=== PATIENT | male | born 1950 | race Two or more races ===

== ENCOUNTER 2024-03-26 20:28 | Inpatient (IN) | payer MEDICAID ==
[~2024-03-26] VITALS: Ht 185.4 cm; Wt 99.0 kg
[2024-03-26 21:55] LABS: Basophils # (auto) 0.1 10 ^3/uL (0-0.2); Basophils % (auto) 1.2 % (0.0-2.0); Eosinophils # (auto) 0.2 10 ^3/uL (0-0.8); Eosinophils % (auto) 2.4 % (0.0-7.0); Hemoglobin 14.8 g/dL (13.5-17.5); Lymphocytes # (auto) 2.2 10 ^3/uL (0.4-5.4); Lymphocytes % (auto) 31.6 % (10.0-50.0); Mean Corpuscular Hemoglobin 32.6 pg (28.0-32.0); Mean Corpuscular Hgb Conc. 34.4 g/dL (32.0-36.0); Monocytes # (auto) 0.7 10 ^3/uL (0-1.3); Monocytes % (auto) 9.7 % (0.0-12.0); Neutrophils # (auto) 3.9 10 ^3/uL (1.6-8.6); Neutrophils % (auto) 55.1 % (37.0-80.0); Nucleated Red Blood Cells % 0.1 %; Platelet Count (auto) 238 10^3/uL (140-450); Red Blood Cells 4.53 10^6/uL (4.5-5.90); Red Cell Distribution Width 14.4 % (11.8-14.3)
[2024-03-26 21:59] LABS: Chloride 108 mmol/L (98-107); Potassium 4.1 mmol/L (3.5-5.1); Sodium 140 mmol/L (136-145)
[2024-03-26 22:00] LABS: Anion Gap 4 (5-15); Calcium 9.8 mg/dL (8.7-10.4); Carbon Dioxide 28 mmol/L (20-30)
[2024-03-26 22:05] LABS: BUN/Creatinine Ratio 7.6 (10.0-20.0); Blood Urea Nitrogen 9 mg/dL (9-23); Glucose 100 mg/dL (74-106)
[2024-03-27] MEDS: VANCOMYCIN 1GM/200ML 200 ML IV ONE ×2 (00:27→00:28)
[2024-03-27] MEDS ORDERED: VANCOMYCIN PER PHARMACY 0 MG IV SCH (03:15)
[2024-03-27] MEDS ORDERED: ACETAMINOPHEN 325 MG TAB PO PRN (03:15)
[2024-03-27] MEDS ORDERED: ONDANSETRON HCL 4 MG/2 ML VIAL IV PRN (03:15)
[2024-03-27 06:00] VITALS: PULSE 68; RESP 20; O2SAT 95
[2024-03-27] MEDS: HYDROcodone-ACET 5/325MG TAB PO PRN (06:28)
[2024-03-27 07:48] LABS: Alanine Aminotransferase 45 U/L (7-40); Albumin 4.6 g/dL (3.2-4.8); Alkaline Phosphatase 105 U/L (46-116); Anion Gap 3 (5-15); Aspartate Aminotransferase 26 U/L (13-40); Blood Urea Nitrogen 13 mg/dL (9-23); Calcium 9.9 mg/dL (8.7-10.4); Carbon Dioxide 30 mmol/L (20-30); Chloride 107 mmol/L (98-107); Glucose 104 mg/dL (74-106); Potassium 4.1 mmol/L (3.5-5.1); Sodium 140 mmol/L (136-145)
[2024-03-27 07:49] LABS: Bilirubin, Total 0.6 mg/dL (0.2-1.0); Total Protein 7.5 g/dL (5.7-8.2)
[2024-03-27 09:25] LABS: Basophils # (auto) 0.1 10 ^3/uL (0-0.2); Basophils % (auto) 0.9 % (0.0-2.0); Eosinophils # (auto) 0.2 10 ^3/uL (0-0.8); Eosinophils % (auto) 2.8 % (0.0-7.0); Hematocrit 45.1 % (41.0-53.0); Hemoglobin 15.1 g/dL (13.5-17.5); Lymphocytes # (auto) 1.6 10 ^3/uL (0.4-5.4); Lymphocytes % (auto) 26.3 % (10.0-50.0); Mean Corpuscular Hgb Conc. 33.5 g/dL (32.0-36.0); Mean Corpuscular Volume 95.6 fL (80.0-100.0); Monocytes # (auto) 0.6 10 ^3/uL (0-1.3); Monocytes % (auto) 9.4 % (0.0-12.0); Neutrophils # (auto) 3.6 10 ^3/uL (1.6-8.6); Neutrophils % (auto) 60.6 % (37.0-80.0); Nucleated Red Blood Cells % 0.1 %; Platelet Count (auto) 247 10^3/uL (140-450); Red Blood Cells 4.72 10^6/uL (4.5-5.90); Red Cell Distribution Width 14.2 % (11.8-14.3)
[2024-03-27 09:30] VITALS: BP 143/80; PULSE 74; RESP 20; TEMP 97.7; O2SAT 98
[2024-03-27 10:30] LABS: Amphetamine Screen, Urine Pos (NEGATIVE)
[2024-03-27 10:31] LABS: Barbiturate Scree,Urine Neg (NEGATIVE); Benzodiazephine Screen, Urine Neg (NEGATIVE); Cannabinoid Screen, Urine Pos (NEGATIVE); Cocaine Screen, Urine Neg (NEGATIVE); Opiate Scree,Urine Neg (NEGATIVE); Phencyclidine Screen, Urine Pos (NEGATIVE)
[2024-03-27] MEDS ORDERED: HYDR-4072 PO (10:42)
[2024-03-27] MEDS ORDERED: METH-1182 PO (10:42)
[2024-03-27] MEDS: cefTRIAXone 1GM/50ML D5W 50 ML IV STA (14:32)
[2024-03-27] MEDS: ENOXAPARIN SOD 40 MG/0.4 ML SYRINGE SC STA (14:32)
[2024-03-27] MEDS: VANCOMYCIN 1GM/200ML 200 ML IV SCH (14:59)
[2024-03-27] MEDS: ENOXAPARIN SOD 100 MG/1 ML SYRINGE SC STA (15:21)
[2024-03-27 15:31] LABS: Urine Bacteria None Seen /hpf (None Seen); Urine Blood Negative /uL (Negative); Urine Clarity Ex.Turbid (Clear); Urine Color Light-Orange (Yellow); Urine Protein, UAD TRACE (Negative); Urine Urobilinogen Normal (Negative); Urine WBC 1 /hpf (0 - 3)
[2024-03-27 17:00] VITALS: BP 127/73; PULSE 60; RESP 20; TEMP 98.2; O2SAT 94
[2024-03-27] MEDS: LOSARTAN POTASSIUM 50 MG TAB PO STA (17:58)
[2024-03-27 20:00] VITALS: RESP 18
[2024-03-27 21:00] VITALS: BP 144/64; PULSE 79; RESP 18; TEMP 98.4; O2SAT 97
[2024-03-27] MEDS: ENOXAPARIN SOD 100 MG/1 ML SYRINGE SC SCH (21:12)
[2024-03-28 05:00] VITALS: BP 131/77; PULSE 74; RESP 18; TEMP 98.3; O2SAT 96
[2024-03-28 07:15] LABS: Basophils # (auto) 0.1 10 ^3/uL (0-0.2); Basophils % (auto) 1.2 % (0.0-2.0); Eosinophils # (auto) 0.2 10 ^3/uL (0-0.8); Eosinophils % (auto) 2.6 % (0.0-7.0); Hemoglobin 14.4 g/dL (13.5-17.5); Lymphocytes # (auto) 1.9 10 ^3/uL (0.4-5.4); Lymphocytes % (auto) 32.4 % (10.0-50.0); Mean Corpuscular Hemoglobin 32.9 pg (28.0-32.0); Mean Corpuscular Hgb Conc. 34.4 g/dL (32.0-36.0); Mean Corpuscular Volume 95.5 fL (80.0-100.0); Monocytes # (auto) 0.7 10 ^3/uL (0-1.3); Monocytes % (auto) 11.6 % (0.0-12.0); Neutrophils # (auto) 3.1 10 ^3/uL (1.6-8.6); Neutrophils % (auto) 52.2 % (37.0-80.0); Nucleated Red Blood Cells % 0.1 %; Platelet Count (auto) 223 10^3/uL (140-450); Red Blood Cells 4.39 10^6/uL (4.5-5.90); Red Cell Distribution Width 14.3 % (11.8-14.3)
[2024-03-28 07:30] LABS: Chloride 106 mmol/L (98-107); Potassium 4.7 mmol/L (3.5-5.1); Sodium 137 mmol/L (136-145)
[2024-03-28 07:31] LABS: Anion Gap 0 (5-15); Carbon Dioxide 31 mmol/L (20-30)
[2024-03-28 07:32] LABS: Calcium 9.5 mg/dL (8.7-10.4)
[2024-03-28 07:36] LABS: BUN/Creatinine Ratio 10.5 (10.0-20.0); Blood Urea Nitrogen 11 mg/dL (9-23); Glucose 106 mg/dL (74-106)
[2024-03-28 08:00] VITALS: PULSE 85; RESP 17
[2024-03-28 08:37] VITALS: BP 137/82; PULSE 60; RESP 17; TEMP 97.7; O2SAT 95
[2024-03-28] MEDS: cefTRIAXone 1GM/50ML D5W 50 ML IV SCH (09:26)
[2024-03-28] MEDS: LOSARTAN POTASSIUM 50 MG TAB PO SCH (09:27)
[2024-03-28] MEDS ORDERED: ENOXAPARIN SOD 100 MG/1 ML SYRINGE SC SCH (10:00)
[2024-03-28] MEDS ORDERED: ENOXAPARIN SOD 40 MG/0.4 ML SYRINGE SC SCH (10:00)
[2024-03-28 13:21] VITALS: BP 127/63; PULSE 67; RESP 17; TEMP 98.4; O2SAT 95
[2024-03-28 15:34] VITALS: BP 130/62; PULSE 81; RESP 17; TEMP 98.4; O2SAT 98
[2024-03-28] MEDS ORDERED: APIX5TAB PO (15:48)
[2024-03-28] MEDS ORDERED: BACDST PO (15:48)
[2024-03-29 08:57] LABS: Hepatitis B Surface Antigen Negative (Negative)
[2024-03-29 14:58] LABS: Hepatitis C Antibody Positive (Negative)
== END 2024-03-28 16:00 | disposition home or self-care (01) | DRG 816 ==
LOC: ER 20:28 → OVERFLOW 03-27 03:09 → EAST 03-27 09:29
PROVIDERS: ADMIT Internal Medicine Pulmonary Disease; ATTEND Emergency Medicine
DX: T63.301A Toxic effect of unspecified spider venom, accidental (unintentional), initial encounter (principal); I82.431 Acute embolism and thrombosis of right popliteal vein; L03.116 Cellulitis of left lower limb; M79.89 Other specified soft tissue disorders; F19.10 Other psychoactive substance abuse, uncomplicated; F15.10 Other stimulant abuse, uncomplicated; F12.10 Cannabis abuse, uncomplicated; I10 Essential (primary) hypertension; R73.03 Prediabetes; E66.9 Obesity, unspecified; Z68.28 Body mass index [BMI] 28.0-28.9, adult; Y92.89 Other specified places as the place of occurrence of the external cause
CPT/HCPCS: 36415; 73590; 73700; 80048; 80053; 80307; 80320; 81001; 83036; 83605; 85025; 86803; 87040; 87340; 93970; 96365; G0378

== ENCOUNTER 2024-11-04 15:54 | Emergency (ER) | payer MEDICAID ==
[~2024-11-04] VITALS: Ht 170.2 cm; Wt 87.7 kg
[~2024-11-04 15:54] MED LIST: APIX5TAB PO; BACDST PO; HYDR-4072 PO; METH-1182 PO
[2024-11-04] MEDS ORDERED: AML5T PO (16:20)
[2024-11-04] MEDS ORDERED: DIPH25CA51 PO (16:20)
[2024-11-04] MEDS ORDERED: TAMS0.4C39 PO (16:20)
--- NOTE | 2024-11-04 16:20 | ED.PDOC ---
History of Present Illness HPI Comments 74-year-old male with past medical history pertinent for HTN, BPH,As the ED for request for medication refill. Patient reports that he recently moved ran out of his Flomax as well as high blood pressure medication. Patient states that he does not remember his blood pressure medication. He denies any symptoms at this time. No fever, chills, nausea, vomiting, chest pain, shortness of breath, headache, abdominal pain, numbness, tingling. No alleviating or aggravating factors. Time Seen by MD: 16:10 Primary Care Provider: MARCIA Reviewed Notes: Nurses Notes, Medications, Allergies Allergies: Coded Allergies: NO KNOWN ALLERGIES (Unverified , 03/26/24) Home Meds Active Scripts Diphenhydramine Hcl (BENADRYL CAPSULE) 25 Mg Cp, 25 MG PO DAILY, #30 CAP Prov:CARLOS GANDHI [facility] 11/04/24 Tamsulosin Hcl (Tamsulosin Hcl) 0.4 Mg Cap, 1 CAP PO DAILY, #30 CAP 1 Refill Prov:CARLOS GANDHI [facility] 11/04/24 Amlodipine Besylate (NORVASC TABLET) 5 Mg Tb, 1 TAB PO DAILY, #30 TAB 1 Refill Prov:CARLOS GANDHI [facility] 11/04/24 Apixaban Base (ELIQUIS) 5 Mg Tab, 10 MG PO BID for 7 Days, #28 TAB 10MG BID X 7 DAYS THEN 5MG PO BID FOR AT LEAST 6 MONTHS FOR DVT/PE TREATMENT Prov:JOHN KRUSE RESIDENT 03/28/24 Apixaban Base (ELIQUIS) 5 Mg Tab, 5 MG PO BID for 30 Days, #60 TAB 5 Refills Prov:JOHN KRUSE RESIDENT 03/28/24 Sulfamethoxazole W/Trimethopri (Bactrim Ds Tablet) 1 Tab Tb, 1 TAB PO BID for 7 Days, #14 TAB Prov:JOHN KRUSE RESIDENT 03/28/24 Reported Medications Methocarbamol (Methocarbamol) 750 Mg Tab, 1 TAB PO BIDPRN PRN for muscle spasm 03/27/24 Hydrocodone-Acetaminophen (Hydrocodone/Acetaminophen 10-325 mg) 1 Tab Tab, 1 TAB PO Q6HPRN PRN for pain 03/27/24 Past Medical History PAST MEDICAL HISTORY: HTN Past Medical History (Other): BPH Surgical History: Denies all surgeries Family History Family History: Reviewed,noncontributory to illness Social History Smoker: Non-Smoker Alcohol: Denies ETOH Use Drugs: Denies Drug Use Lives In: Home Constitutional: denies: chills, diaphoresis, fatigue, fever, malaise, sweats, weakness, others EENTM: denies: blurred vision, double vision, ear bleeding, ear discharge, ear drainage, ear pain, ear ringing, eye pain, eye redness, hearing loss, mouth pain, mouth swelling, nasal discharge, nose bleeding, nose congestion, nose pain, photophobia, tearing, throat pain, throat swelling, voice changes, others Respiratory: denies: cough, hemoptysis, orthopnea, SOB at rest, shortness of breath, SOB with excertion, stridor, wheezing, others Cardiovascular: denies: chest pain, dizzy spells, diaphoresis, Dyspnea on exertion, edema, irregular heart beat, left arm pain, lightheadedness, palpitations, PND, syncope, others Gastrointestinal: denies: abdomen distended, abdominal pain, blood streaked bowels, constipated, diarrhea, dysphagia, difficulty swallowing, hematemesis, melena, nausea, poor appetite, poor fluid intake, rectal bleeding, rectal pain, vomiting, others Genitourinary: denies: burning, dysuria, flank pain, frequency, hematuria, incontinence, penile discharge, penile sore, pain, testicle pain, testicle swelling, urgency, others Neurological: denies: dizziness, fainting, headache, left sided numbness, left sided weakness, numbness, paresthesia, pre-existing deficit, right sided numb ness, right sided weakness, seizure, speech problems, tingling, tremors, weakness, others Musculoskeletal: denies: back pain, gout, joint pain, joint swelling, muscle pain, muscle stiffness, neck pain, others Integumetry: denies: bruises, change in color, change in hair/nails, dryness, laceration, lesions, lumps, rash, wounds, others Allergic/Immunocompromised: denies: Difficulty Healing, Frequent Infections, Hives, Itching, others Hematologic/Lymphatic: denies: anemia, blood clots, easy bleeding, easy bruising, swollen glands, others Endocrine: denies: excessive hunger, excessive sweating, excessive thirst, excessive urination, flushing, intolerance to cold, intolerance to heat, unexplained weight gain, unexplained weight loss, others Psychiatric: denies: anxiety, bipolar disorder, depression, hopeless, panic disorder, schizophrenia, sleepless, suicidal, others All Other Systems: Reviewed and Negative Physical Exam General Appearance: No Apparent Distress, Normal HEENT: Normal ENT Inspection, Pharynx Normal, TMs Normal Neck: Full Range of Motion, Non-Tender, Normal, Normal Inspection Respiratory: Chest Non-Tender, Lungs Clear, No Accessory Muscle Use, No Respiratory Distress, Normal Breath Sounds Cardiovascular: No Edema, No JVD, No Murmur, No Gallop, Normal Peripheral Pulses, Regular Rate/Rhythm Breast Exam: Deferred Gastrointestinal: No Organomegaly, Non Tender, No Pulsatile Mass, Normal Bowel Sounds, Soft Genitalia: Deferred Pelvic: Deferred Rectal: Deferred Extremities: No calf tenderness, Normal capillary refill, Normal inspection, Normal range of motion, Non-tender, No pedal edema Musculoskeletal : Apperance: Normal Neurologic: Alert, 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 Was a procedure done?: No Differential Dx Considerations may include: Medication refill, hypertensive urgency, hypertensive emergency X-Ray, Labs, Meds, VS Vital Signs Date Time Temp Pulse Resp B/P (MAP) Pulse Ox O2 Delivery O2 Flow Rate FiO2 11/04/24 16:24 98.7 104 16 143/81 (101) 94 98.7 X-Ray, Labs, Meds, VS Comment MDM: Patient with history as above presented with no complaints. History obtained from patient. Patient was nontoxic, stable, afebrile, ambulatory, no acute distress. Exam as above. Reviewed external records. All findings were discussed with the patient. Differential diagnosis considered. Overall presentation is consistent with request for medication refill. Low suspicion for hypertensive urgency, hypertensive emergency. Patient was reevaluated and vital signs were reviewed. Consideration was given for admission, but the patient was stable for outpatient management. Disposition: Discussed the need to follow up diagnostics, including incidental findings. Discharged the patient with instructions to obtain outpatient follow up in 1-2 days of today's symptoms and findings, with strict return precautions if patient develops new or worsening symptoms. This medical document was created using the [employer] dictation system. Although this document has been carefully reviewed, there may still be some phonetic and typographical errors, which are due to imperfections of the software program, and do not reflect any compromise in the patient's medical care. Time of 1ST Reevaluation: 16:19 Reevaluation 1ST: Improved Patient Education/Counseling: Diagnosis, Treatment, Prognosis, Need For Follow Up Family Education/Counseling: No Family Present Departure 1 Departure Time of Disposition: 16:19 Impression: Primary Impression: Medication refill Disposition: 01 HOME / SELF CARE / HOMELESS Condition: Fair e-Prescriptions Diphenhydramine Hcl (BENADRYL CAPSULE) 25 Mg Cp 25 MG PO DAILY, #30 CAP Prov: CARLOS GANDHI 11/04/24 Tamsulosin Hcl (Tamsulosin Hcl) 0.4 Mg Cap 1 CAP PO DAILY, #30 CAP 1 Refill Prov: CARLOS GANDHI 11/04/24 Amlodipine Besylate (NORVASC TABLET) 5 Mg Tb 1 TAB PO DAILY, #30 TAB 1 Refill Prov: CARLOS GANDHI 11/04/24 Critical Care Note Critical Care Time?: No Stability Stability form required: No Heart Score Heart Score: Heart Score Response (Comments) Value History N/A 0 EKG N/A 0 Age N/A 0 Risk Factors N/A 0 Troponin N/A 0 Total 0 CARLOS GANDHI Nov 04, 2024 16:20
[2024-11-04 17:09] VITALS: BP 138/84; PULSE 99; RESP 20; TEMP 98.8; O2SAT 96
== END 2024-11-04 17:10 | disposition home or self-care (01) ==
LOC: ER 15:54
DX: I10 Essential (primary) hypertension (principal); Z76.0 Encounter for issue of repeat prescription; N40.0 Benign prostatic hyperplasia without lower urinary tract symptoms; Z79.899 Other long term (current) drug therapy

== ENCOUNTER 2024-11-13 19:53 | Inpatient (IN) | payer MEDICAID ==
[~2024-11-13] VITALS: Ht 177.8 cm; Wt 89.0 kg
[~2024-11-13 19:53] MED LIST changes: +AML5T PO; +DIPH-751 PO; +DIPH25CA51 PO; +TAMS0.4C39 PO
--- NOTE | 2024-11-13 20:13 | ED.PDOC ---
History of Present Illness HPI Comments 74-year-old male who came to ER via EMS for generalized weakness. Patient has history of hypertension and liver cirrhosis. Claims he is already sober. For the past 4 days, he has been having generalized weakness, progressively worsening, associated with loss of appetite in decreased urine output. Denies any nausea, vomiting or diarrhea. Patient was tachypneic on scene at 40's cpm, saturating at 80's on room air. Noted also to be febrile at 102.2 F Chief Complaint: General Weakness Time Seen by MD: 20:13 Primary Care Provider: UNKNOWN Reviewed Notes: [employer] Notes Allergies: Coded Allergies: NO KNOWN ALLERGIES (Unverified , 03/26/24) Home Meds Active Scripts Diphenhydramine Hcl (BENADRYL CAPSULE) 25 Mg Cp, 25 MG PO DAILY, #30 CAP Prov:CARLOS GANDHI [facility] 11/04/24 Tamsulosin Hcl (Tamsulosin Hcl) 0.4 Mg Cap, 1 CAP PO DAILY, #30 CAP 1 Refill Prov:CARLOS GANDHI [facility] 11/04/24 Amlodipine Besylate (NORVASC TABLET) 5 Mg Tb, 1 TAB PO DAILY, #30 TAB 1 Refill Prov:CARLOS GANDHI [facility] 11/04/24 Apixaban Base (ELIQUIS) 5 Mg Tab, 10 MG PO BID for 7 Days, #28 TAB 10MG BID X 7 DAYS THEN 5MG PO BID FOR AT LEAST 6 MONTHS FOR DVT/PE TREATMENT Prov:JOHN KRUSE RESIDENT 03/28/24 Apixaban Base (ELIQUIS) 5 Mg Tab, 5 MG PO BID for 30 Days, #60 TAB 5 Refills Prov:JOHN KRUSE RESIDENT 03/28/24 Sulfamethoxazole W/Trimethopri (Bactrim Ds Tablet) 1 Tab Tb, 1 TAB PO BID for 7 Days, #14 TAB Prov:JOHN KRUSE RESIDENT 03/28/24 Reported Medications Methocarbamol (Methocarbamol) 750 Mg Tab, 1 TAB PO BIDPRN PRN for muscle spasm 03/27/24 Hydrocodone-Acetaminophen (Hydrocodone/Acetaminophen 10-325 mg) 1 Tab Tab, 1 TAB PO Q6HPRN PRN for pain 03/27/24 Information Source: Patient, Emergency Med Personnel Mode of Arrival: EMS Severity: Moderate Timing: Days Duration: Intermittent Prehospital treatment: Oxygen Past Medical History PAST MEDICAL HISTORY: HTN, Liver Surgical History: Denies all surgeries Family History Family History: Reviewed,noncontributory to illness Social History Smoker: Non-Smoker Alcohol: Sober Drugs: Denies Drug Use Lives In: Home Constitutional: reports: fatigue, fever, weakness; denies: chills, diaphoresis, malaise, sweats, others EENTM: denies: blurred vision, double vision, ear bleeding, ear discharge, ear drainage, ear pain, ear ringing, eye pain, eye redness, hearing loss, mouth pain, mouth swelling, nasal discharge, nose bleeding, nose congestion, nose pain, photophobia, tearing, throat pain, throat swelling, voice changes, others Respiratory: reports: SOB at rest, shortness of breath; denies: cough, hemoptysis, orthopnea, SOB with excertion, stridor, wheezing, others Cardiovascular: denies: chest pain, dizzy spells, diaphoresis, Dyspnea on exertion, edema, irregular heart beat, left arm pain, lightheadedness, palpitations, PND, syncope, others Gastrointestinal: reports: abdominal pain, poor appetite; denies: abdomen distended, blood streaked bowels, constipated, diarrhea, dysphagia, difficulty swallowing, hematemesis, melena, nausea, poor fluid intake, rectal bleeding, rectal pain, vomiting, others Genitourinary: denies: burning, dysuria, flank pain, frequency, hematuria, incontinence, penile discharge, penile sore, pain, testicle pain, testicle swelling, urgency, others Neurological: denies: dizziness, fainting, headache, left sided numbness, left sided weakness, numbness, paresthesia, pre-existing deficit, right sided numbness, right sided weakness, seizure, speech problems, tingling, tremors, weakness, others Musculoskeletal: denies: back pain, gout, joint pain, joint swelling, muscle pain, muscle stiffness, neck pain, others Integumetry: denies: bruises, change in color, change in hair/nails, dryness, laceration, lesions, lumps, rash, wounds, others Allergic/Immunocompromised: denies: Difficulty Healing, Frequent Infections, Hives, Itching, others Hematologic/Lymphatic: denies: anemia, blood clots, easy bleeding, easy bruising, swollen glands, others Endocrine: denies: excessive hunger, excessive sweating, excessive thirst, excessive urination, flushing, intolerance to cold, intolerance to heat, unexplained weight gain, unexplained weight loss, others Psychiatric: denies: anxiety, bipolar disorder, depression, hopeless, panic disorder, schizophrenia, sleepless, suicidal, others Physical Exam General Appearance: No Apparent Distress, Normal HEENT: Normal ENT Inspection, Pharynx Normal, TMs Normal Neck: Full Range of Motion, Non-Tender, Normal, Normal Inspection Respiratory: Chest Non-Tender, Lungs Clear, No Accessory Muscle Use, No Respiratory Distress, Normal Breath Sounds Cardiovascular: No Edema, No JVD, No Murmur, No Gallop, Normal Peripheral Pulses, Regular Rate/Rhythm Breast Exam: Deferred Gastrointestinal: No Organomegaly, Non Tender, No Pulsatile Mass, Normal Bowel Sounds, Soft Genitalia: Deferred Pelvic: Deferred Rectal: Deferred Extremities: No calf tenderness, Normal capillary refill, Normal inspection, Normal range of motion, Non-tender, No pedal edema Musculoskeletal : Apperance: Normal Neurologic: Alert, 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 Was a procedure done?: No Differential Dx Considerations may include: Anemia, electrolyte imbalance, sepsis, liver failure, pneumonia, weakness X-Ray, Labs, Meds, VS Vital Signs Date Time Temp Pulse Resp B/P (MAP) Pulse Ox O2 Delivery O2 Flow Rate FiO2 11/13/24 20:45 110 11/13/24 20:44 100.3 11/13/24 20:21 106 11/13/24 20:01 103.0 120 40 154/86 (108) 93 103.0 Lab Test 11/13/24 20:47 Range/Units White Blood Count 13.0 H 4.4-10.8 10^3/uL Red Blood Count 5.01 4.5-5.90 10^6/uL Hemoglobin 15.7 13.5-17.5 g/dL Hematocrit 46.1 41.0-53.0 % Mean Corpuscular Volume 92.1 80.0-100.0 fL Mean Corpuscular Hemoglobin 31.3 28.0-32.0 pg Mean Corpuscular Hemoglobin Concent 34.0 32.0-36.0 g/dL Red Cell Distribution Width 15.4 H 11.8-14.3 % Platelet Count 165 140-450 10^3/uL Mean Platelet Volume 8.4 6.9-10.8 fL Neutrophils (%) (Auto) 83.3 H 37.0-80.0 % Lymphocytes (%) (Auto) 6.3 L 10.0-50.0 % Monocytes (%) (Auto) 10.2 0.0-12.0 % Eosinophils (%) (Auto) 0.0 0.0-7.0 % Basophils (%) (Auto) 0.2 0.0-2.0 % Neutrophils # (Auto) 10.8 H 1.6-8.6 10 ^3/uL Lymphocytes # (Auto) 0.8 0.4-5.4 10 ^3/uL Monocytes # (Auto) 1.3 0-1.3 10 ^3/uL Eosinophils # (Auto) 0 0-0.8 10 ^3/uL Basophils # (Auto) 0 0-0.2 10 ^3/uL Nucleated Red Blood Cells 0.1 % Sodium Level Pending Potassium Level Pending Chloride Level Pending Carbon Dioxide Level Pending Anion Gap Pending Blood Urea Nitrogen Pending Creatinine Pending Glomerular Filtration Rate Calc Pending BUN/Creatinine Ratio Pending Serum Glucose Pending Lactic Acid Level Pending Calcium Level Pending Total Bilirubin Pending Aspartate Amino Transferase (AST) Pending Alanine Aminotransferase (ALT) Pending Alkaline Phosphatase Pending Troponin I High Sensitivity Pending Total Protein Pending Albumin Pending Current Medications Medications (Trade) Dose Ordered Sig/Ella Route Start Time Stop Time Status Last Admin Sodium Chloride 1,000 ml @ 1,000 mls/hr Q1H ONCE IVB 11/13/24 20:00 11/13/24 20:59 DC 11/13/24 21:03 Acetaminophen (Tylenol Tablet) 1,000 mg ONCE ONCE PO 11/13/24 20:00 11/13/24 20:01 DC 11/13/24 20:44 Time of 1ST Reevaluation: 20:02 Reevaluation 1ST: Unchanged Patient Education/Counseling: Diagnosis, Treatment Family Education/Counseling: No Family Present Additional Information Generalized Weakness, Fever, and Shortness of Breath Chief Complaint: Generalized weakness, fever, and shortness of breath History of Present Illness: 74-year-old male presents to the Emergency Department with a 2-day history of generalized weakness, fevers, and shortness of breath. Patient has underlying hypertension and liver cirrhosis, though denies alcohol use. On presentation, patient was noted to be hypoxic with oxygen saturation in the upper 80s on room air, requiring supplemental oxygen via nasal cannula to maintain saturations in the mid-90s. Review of Systems: Constitutional: Positive for fever, generalized weakness Respiratory: Positive for shortness of breath All other systems reviewed and negative Past Medical History: 1. Hypertension 2. Liver cirrhosis Vital Signs: O2 saturation: Upper 80s% on room air O2 saturation: Mid-90s% on nasal cannula Physical Exam: Limited physical exam details available from heat treating operator Lab Results: WBC: 13, 000 (Elevated) Imaging and Other Relevant Results: Chest X-ray: Right mid and lower field consolidation consistent with pneumonia Medical Decision Making: Summary Statement: 74-year-old male with history of cirrhosis presenting with fever, weakness, and hypoxia found to have community-acquired pneumonia. Problem List: 1. Community-acquired pneumonia 2. Hypoxic respiratory failure 3. Liver cirrhosis Differential Diagnosis: Community-acquired pneumonia, Healthcare-associated pneumonia, COVID-19, Acute decompensated liver disease, Pleural effusion ED Course: Patient received IV fluids, IV Ceftriaxone, and IV Azithromycin. Required supplemental oxygen via nasal cannula with improvement in oxygen saturation. Assessment and Plan: 1. Community-acquired pneumonia: - Initiated IV antibiotics (Ceftriaxone and Azithromycin) - Admit for continued IV antibiotics and monitoring 2. Hypoxic respiratory failure: - Supplemental oxygen via nasal cannula - Continue oxygen therapy and monitoring 3. Liver cirrhosis: - Monitor liver function during admission - Evaluate for any acute decompensation Disposition: Admit to medical floor Billing Information: ICD-10: J18.9 - Pneumonia, unspecified organism ICD-10: J96.01 - Acute respiratory failure with hypoxia ICD-10: K74.60 - Unspecified cirrhosis of liver Sepsis focused exam: focus exam completed (In the initial resuscitation at least 30 mL/kg of IV crystalloid fluid was NOT given within the first 3 hr due to concerns of fluid overload), time: (2099) Sepsis Sepsis Reasesment Focused Exam Sepsis focused exam: focus exam completed, time: (2099) Departure 1 Departure Time of Disposition: 21:45 Impression: Primary Impression: Pneumonia Additional Impression: Respiratory failure with hypoxia Disposition: 09 ADMITTED INPATIENT Condition: Guarded Critical Care Note Critical Care Time?: Yes (35 min-critical care time only) Critical care comment: Shortness of breath, Total critical care time: Approximately 36 minutes Due to a high probability of clinically significant, life threatening deterioration, the patient required my highest level of preparedness to intervene emergently and I personally spent this critical care time directly and personally managing the patient. This critical care time included obtaining a history; examining the patient; pulse oximetry; ordering and review of studies; arranging urgent treatment with development of a management plan; evaluation of patient's response to treatment; frequent reassessment; and, discussions with other providers. This critical care time was performed to assess and manage the high probability of imminent, life-threatening deterioration that could result in multi-organ failure. It was exclusive of separately billable procedures and treating other patients. Stability Stability form required: No Heart Score Heart Score: Heart Score Response (Comments) Value History N/A 0 EKG N/A 0 Age N/A 0 Risk Factors N/A 0 Troponin N/A 0 Total 0 I personally scribed for PIYUSH MENDOZA MD ([email or web address]) on 11/13/24 at 20:13. Electronically submitted by Gera Chu ([email or web address]). PIYUSH MENDOZA MD Nov 13, 2024 20:13
[2024-11-13] MEDS: ACETAMINOPHEN 325 MG TAB PO ONE (20:44)
[2024-11-13 21:00] VITALS: PULSE 128; RESP 34; O2SAT 96
[2024-11-13] MEDS: SODIUM CHLORIDE 0.9% 1,000 ML IVB ONE (21:03)
[2024-11-13 21:17] LABS: Basophils # (auto) 0 10 ^3/uL (0-0.2); Basophils % (auto) 0.2 % (0.0-2.0); Eosinophils # (auto) 0 10 ^3/uL (0-0.8); Hematocrit 46.1 % (41.0-53.0); Hemoglobin 15.7 g/dL (13.5-17.5); Lymphocytes # (auto) 0.8 10 ^3/uL (0.4-5.4); Lymphocytes % (auto) 6.3 % (10.0-50.0); Mean Corpuscular Hemoglobin 31.3 pg (28.0-32.0); Mean Corpuscular Volume 92.1 fL (80.0-100.0); Monocytes # (auto) 1.3 10 ^3/uL (0-1.3); Monocytes % (auto) 10.2 % (0.0-12.0); Neutrophils # (auto) 10.8 10 ^3/uL (1.6-8.6); Neutrophils % (auto) 83.3 % (37.0-80.0); Nucleated Red Blood Cells % 0.1 %; Platelet Count (auto) 165 10^3/uL (140-450); Red Blood Cells 5.01 10^6/uL (4.5-5.90); Red Cell Distribution Width 15.4 % (11.8-14.3)
--- NOTE | 2024-11-13 21:19 | DVH ---
CHEST RADIOGRAPH Indication: SOB, fever Technique: Single frontal view of the chest was obtained Comparison: None FINDINGS: Lines and Tubes: None Lungs: 7.2 x 8.2 cm area of consolidation abutting minor fissure in the right upper lung field. This may be in the this may represent a pulmonary consolidation due to infection can not exclude neoplasm . Pleura: No effusion. No pneumothorax. Cardiomediastinal contours: Unremarkable Bones: No acute osseous abnormality. IMPRESSION: 1. Pulmonary consolidation mid right chest. may represent infection or neoplasm.
[2024-11-13 21:37] LABS: Alanine Aminotransferase 34 U/L (7-40); Albumin 4.6 g/dL (3.2-4.8); Alkaline Phosphatase 76 U/L (46-116); Anion Gap 11 (5-15); BUN/Creatinine Ratio 15.3 (10.0-20.0); Bilirubin, Total 0.6 mg/dL (0.2-1.0); Carbon Dioxide 20 mmol/L (20-31); Chloride 101 mmol/L (98-107); Potassium 3.9 mmol/L (3.5-5.1)
[2024-11-13 21:44] LABS: Aspartate Aminotransferase 57 U/L (13-40); Blood Urea Nitrogen 27 mg/dL (9-23); Calcium 10.7 mg/dL (8.7-10.4); Glucose 124 mg/dL (74-106); Sodium 132 mmol/L (136-145); Total Protein 8.3 g/dL (5.7-8.2)
[2024-11-13] MEDS: cefTRIAXone 1GM/50ML D5W 50 ML IV ONE (22:16)
[2024-11-13] MEDS: AZITHROMYCIN 500MG/ 250ML 250 ML IV ONE (22:52)
[2024-11-13] MEDS ORDERED: MORPHINE SULFATE INJ 2 MG/ml SYRG IV PRN (23:00)
[2024-11-13] MEDS ORDERED: NITROGLYCERIN 0.4 MG SL TAB SL PRN (23:00)
[2024-11-13] MEDS ORDERED: VANCOMYCIN PER PHARMACY 0 MG IV SCH (23:00)
--- NOTE | 2024-11-13 23:14 | DVHHPRES ---
History of Present Illness Resident Creating Document: FELICIANO CHAN RESDIENT History of Present Illness This is a 74-year-old male with past medical history of hypertension and liver cirrhosis came to the hospital due to generalized weakness and decreased oral intake since 4 days which has progressively worsened. He also reports shortness of breaths, cough, chest pain and decreased urine output. He denies headache, nausea, vomiting, abdominal pain, or any recent sick contacts or bowel habit changes. Previous hospitalization: Patient was admitted at [facility] on March 2024 due to left leg cellulitis, status post spider bite PMHx: Hypertension and liver cirrhosis PSHx: Not significant Family history: Noncontributory Social history: Patient lives with the brother at home, ex-smoker denies any other drug use Home medication: Amlodipine, Flomax Allergic history: No known allergy Review of Systems Review of Systems General: Reports generalized weakness and decreased oral intake HEENT: No headaches, visiual changes, hearing loss, tinnitus, nasal congestion and discharge, and sore throat. Cardiovascular: Denies chest pain, palpitations, dyspnea on exertion, orthopnea, or claudication. Respiratory: Reports cough and shortness of breaths Gastrointestinal: Denies nausea, vomiting, dysphagia, odynophagia, heartburn, abdominal pain, flatulence, bloating, diarrhea, constipation, change in stool, or blood in stool. Genitourinary: Reports decreased urine output Endocrine: No heat or cold intolerance, polydipsia, polyuria, and polyphagia. Neurological: No dizziness, extremity weakness and numbness, tremors, gait disturbance, seizures, and memory impairment. Psychiatric: Denies depression, anxiety,or insomnia. Musculoskeletal: Denies neck pain, stiffness and swelling, back pain, muscle weakness, joint pain, stiffness, swelling, or limited range of motion. Skin: No rashes, itching, skin lesion, changes in hair, nail, skin texture and breast. Hematologic/Lymphatic: Denies easy bruising, bleeding tendencies, or lymph node enlargement. Allergies: Coded Allergies: NO KNOWN ALLERGIES (Unverified , 03/26/24) Medications Current Medications Medications Dose Ordered Sig/Ella Route Start Time Stop Time Status Last Admin Dose Admin Nitroglycerin 0.4 mg Q5MINP PRN SL 11/13/24 23:00 Morphine Sulfate 2 mg Q30M PRN IV 11/13/24 23:00 Vancomycin HCl 0 ml @ 0 mls/hr UD IV 11/13/24 23:00 UNV Acetaminophen 650 mg Q6HP PRN PO 11/13/24 23:15 Vancomycin HCl 250 ml @ 250 mls/hr Q1H IV 11/13/24 23:15 11/14/24 01:14 Exam Vital Signs Vital Signs Date Time Temp Pulse Resp B/P (MAP) Pulse Ox O2 Delivery O2 Flow Rate FiO2 11/13/24 22:51 99.9 11/13/24 20:45 110 11/13/24 20:01 40 154/86 (108) 93 Exam General Appearance: Alert, Oriented X3, Cooperative, No acute distress HEENT: Atraumatic, PERRLA, EOMI, Mucous membrane moist/pink Respiratory: Right-sided crackles Cardiovascular: Regular rate, Normal S1, Normal S2, No murmurs, no chest wall tenderness Abdominal: Normal bowel sounds, Soft, No tenderness, No hepatospenomegaly, No masses Extremities: No clubbing, No cyanosis, No edema, Normal pulses, No tenderness/swelling Skin: No rashes, No breakdown, No significant lesion Neuro: Normal gait, Normal speech, Strength at 5/5 X4 ext, Normal tone, Sensation intact, Cranial nerves 3-12 NL, Reflexes 2+ Psych/Mental Status: Mental status NL, Mood NL Labs/Xrays Labs Test 11/13/24 20:47 Range/Units White Blood Count 13.0 H 4.4-10.8 10^3/uL Red Blood Count 5.01 4.5-5.90 10^6/uL Hemoglobin 15.7 13.5-17.5 g/dL Hematocrit 46.1 41.0-53.0 % Mean Corpuscular Volume 92.1 80.0-100.0 fL Mean Corpuscular Hemoglobin 31.3 28.0-32.0 pg Mean Corpuscular Hemoglobin Concent 34.0 32.0-36.0 g/dL Red Cell Distribution Width 15.4 H 11.8-14.3 % Platelet Count 165 140-450 10^3/uL Mean Platelet Volume 8.4 6.9-10.8 fL Neutrophils (%) (Auto) 83.3 H 37.0-80.0 % Lymphocytes (%) (Auto) 6.3 L 10.0-50.0 % Monocytes (%) (Auto) 10.2 0.0-12.0 % Eosinophils (%) (Auto) 0.0 0.0-7.0 % Basophils (%) (Auto) 0.2 0.0-2.0 % Neutrophils # (Auto) 10.8 H 1.6-8.6 10 ^3/uL Lymphocytes # (Auto) 0.8 0.4-5.4 10 ^3/uL Monocytes # (Auto) 1.3 0-1.3 10 ^3/uL Eosinophils # (Auto) 0 0-0.8 10 ^3/uL Basophils # (Auto) 0 0-0.2 10 ^3/uL Nucleated Red Blood Cells 0.1 % Sodium Level 132 L 136-145 mmol/L Potassium Level 3.9 3.5-5.1 mmol/L Chloride Level 101 98-107 mmol/L Carbon Dioxide Level 20 20-31 mmol/L Anion Gap 11 5-15 Blood Urea Nitrogen 27 H 9-23 mg/dL Creatinine 1.77 H 0.700-1.30 mg/dL Glomerular Filtration Rate Calc 40 >90 mL/min BUN/Creatinine Ratio 15.3 10.0-20.0 Serum Glucose 124 H 74-106 mg/dL Lactic Acid Level 1.9 0.4-2.0 mmol/L Calcium Level 10.7 H 8.7-10.4 mg/dL Total Bilirubin 0.6 0.2-1.0 mg/dL Aspartate Amino Transferase (AST) 57 H 13-40 U/L Alanine Aminotransferase (ALT) 34 7-40 U/L Alkaline Phosphatase 76 46-116 U/L Troponin I High Sensitivity 29 </=54 ng/L Total Protein 8.3 H 5.7-8.2 g/dL Albumin 4.6 3.2-4.8 g/dL Assessment/Plan Assessment/Plan Sepsis, likely due to pneumonia Acute hypoxic respiratory failure, likely due to pneumonia Pneumonia, likely due to Gram-positive Gram-negative bacteria/atypical/viral Complicated UTI Chest x-ray shows consolidation at right mid chest, med represent infection/neoplasm Blood/sputum/urine culture, check COVID-19/influenza and MRSA nares Empiric antibiotic, vancomycin, cefepime and azithromycin IV fluid Tylenol p.r.n. NATHALIE on CKD 2, likely VMN IV fluid Polysubstance drug abuse Asymptomatic hypercalcemia Mild hyponatremia Transaminitis DIET: Cardiac diet DVT PROPHYLAXIS: Lovenox GI PROPHYLAXIS:: Protonix CODE STATUS: Goal of care discussed for more than 18 minutes, full code DISPOSITION: Med/surge Patient's status and plan discussed with the patient. Case discussed with Dr. Melissa. Plan discussed with: Patient Date of Service: Nov 13, 2024 Billing Provider: JACOBY MELISSA MD Common Visit Codes: [id number] INP/OBS CARE (HIGH) Secondary Visit Codes: [id number] CARE PLAN 30 MINUTES FELICIANO CHAN RESDIENT Nov 13, 2024 23:14 JACOBY MELISSA MD Nov 14, 2024 14:26
[2024-11-13] MEDS: VANCOMYCIN 1GM/250mL NS or D5W KIT IV SCH (23:15)
[2024-11-14] VITALS (9 sets, daily range): BP systolic 129–157; BP diastolic 58–81; PULSE 96–105; RESP 15–22; TEMP 97.4–103; O2SAT 93–100
[2024-11-14] LABS: Protein, Urine 130.1 mg/dL (1-14)
[2024-11-14 00:02] LABS: Cannabinoid Screen, Urine Pos (NEGATIVE); Creatinine, Urine 208.38 mg/dL (30.0-125.0); Phencyclidine Screen, Urine Pos (NEGATIVE)
[2024-11-14 00:13] LABS: Barbiturate Scree,Urine Neg (NEGATIVE); Opiate Scree,Urine Neg (NEGATIVE)
[2024-11-14 00:14] LABS: Amphetamine Screen, Urine Pos (NEGATIVE); Benzodiazephine Screen, Urine Neg (NEGATIVE); Cocaine Screen, Urine Neg (NEGATIVE)
--- NOTE | 2024-11-14 00:27 | DVH ---
INDICATION: to rule out obstruction TECHNIQUE: Multiple real-time sonographic images of the kidneys and bladder were obtained. COMPARISON: None FINDINGS: The right kidney measures 10.5 cm in length, which is normal in size. There is normal echog enicity of the right kidney. No hydronephrosis. The left kidney was not visualized on this study Distended urinary bladder demonstrating wall thickness of 0.5 cm. Prevoid urinary bladder volume of 3 0 mL. IMPRESSION: Left kidney was not visualized on this study. Diffuse urinary bladder wall thickening. Correlate for acute cystitis
[2024-11-14 00:29] LABS: INR 1.04 (0.9-1.15); Partial Thromboplastin Time 32.9 SEC (24.5-34.5)
[2024-11-14 00:36] LABS: Urine Bacteria MANY /hpf (None Seen); Urine Blood 1+ /uL (Negative); Urine Clarity Turbid (Clear); Urine Color Light-Orange (Yellow); Urine Hyaline Cast FEW /lpf (0 - 2); Urine Protein, UAD 1+ (Negative); Urine Squamous Epithelial Cell FEW /hpf (<5); Urine Urobilinogen 3 mg/dL (Negative); Urine WBC 128 /HPF (0-3); Urine WBC Clumps PRESENT /hpf (None Seen); Urine pH 5.5 (5.0-9.0)
[2024-11-14] MEDS: LACTATED RINGER'S 1,000 ML IV ONE ×2 (01:16→04:32)
[2024-11-14] MEDS: TAMSULOSIN HYDROCHLORIDE 0.4 MG CAP PO ONE (01:25)
[2024-11-14] MEDS: ENOXAPARIN SOD 40 MG/0.4 ML SYRINGE SC ONE (01:31)
[2024-11-14 03:22] LABS: Basophils # (auto) 0 10 ^3/uL (0-0.2); Basophils % (auto) 0.2 % (0.0-2.0); Eosinophils # (auto) 0 10 ^3/uL (0-0.8); Hematocrit 41.5 % (41.0-53.0); Hemoglobin 14.1 g/dL (13.5-17.5); Lymphocytes # (auto) 0.9 10 ^3/uL (0.4-5.4); Lymphocytes % (auto) 6.9 % (10.0-50.0); Mean Corpuscular Hemoglobin 31.3 pg (28.0-32.0); Mean Corpuscular Hgb Conc. 33.9 g/dL (32.0-36.0); Mean Corpuscular Volume 92.4 fL (80.0-100.0); Monocytes # (auto) 1.5 10 ^3/uL (0-1.3); Monocytes % (auto) 11.4 % (0.0-12.0); Neutrophils # (auto) 10.5 10 ^3/uL (1.6-8.6); Neutrophils % (auto) 81.5 % (37.0-80.0); Platelet Count (auto) 155 10^3/uL (140-450); Red Blood Cells 4.49 10^6/uL (4.5-5.90); Red Cell Distribution Width 15.3 % (11.8-14.3); White Blood Cell 12.9 10^3/uL (4.4-10.8)
[2024-11-14 03:40] LABS: Alanine Aminotransferase 27 U/L (7-40); Alkaline Phosphatase 66 U/L (46-116); Anion Gap 7 (5-15); BUN/Creatinine Ratio 14.6 (10.0-20.0); Bilirubin, Total 0.5 mg/dL (0.2-1.0); Calcium 9.5 mg/dL (8.7-10.4); Carbon Dioxide 23 mmol/L (20-31); Chloride 105 mmol/L (98-107); Potassium 3.9 mmol/L (3.5-5.1); Total Protein 7.3 g/dL (5.7-8.2)
[2024-11-14 03:52] LABS: Glucose 137 mg/dL (74-106); Sodium 135 mmol/L (136-145)
[2024-11-14 03:53] LABS: Aspartate Aminotransferase 50 U/L (13-40); Blood Urea Nitrogen 26 mg/dL (9-23)
[2024-11-14] MEDS: CEFEPIME 1GM/ 50ML 50 ML IV ONE (04:32)
[2024-11-14 04:35] LABS: Rapid Influenza A Negative (Negative); Rapid Influenza B Negative (Negative)
[2024-11-14 04:36] LABS: COVID19 ANTIGEN SOFIA FIA NEGATIVE (NEGATIVE)
[2024-11-14] MEDS: SODIUM CHLORIDE 0.9% 1,000 ML IV ONE (05:31)
--- NOTE | 2024-11-14 08:20 | ECG ---
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
[2024-11-14] MEDS: CEFEPIME 1GM/ 50ML 50 ML IV SCH (08:59)
--- NOTE | 2024-11-14 11:05 | DVH ---
US BiLat Lower DVT HISTORY: To rule out dvt COMPARISON: US BILAT LOWER DVT on DOS: 03/27/24 TECHNIQUE: Duplex Doppler evaluation of the deep venous system of the lower extremity from the common femoral veins, superficial femoral vein, great saphenous vein, deep femoral vein, popliteal vein, an d calf veins, including color Doppler and spectral/pulsed waveform analysis, was performed. FINDINGS: Right: - Common femoral vein: Non compressible - Deep femoral vein: Compressible - Femoral vein: Non compressible - Popliteal vein: Non compressible - Posterior tibial vein: Waveforms present - Peroneal vein: Waveforms present - Other: Nothing Left: - Common femoral vein: Compressible - Deep femoral vein: Compressible - Femoral vein: Non compressible - Popliteal vein: Non compressible - Posterior tibial vein: Waveforms present - Peroneal vein: Waveforms present - Other: Nothing IMPRESSION: Bilateral nonocclused deep venous thrombus (chronic) and previously communicated DVT in the femoral a nd popliteal veins.
[2024-11-14] MEDS: AZITHROMYCIN 500MG/ 250ML 250 ML IV SCH (12:37)
--- NOTE | 2024-11-14 15:45 | DVHPNRES ---
Progress Note Date Seen: Nov 14, 2024 Resident Creating Document: DAYANA ROLDAN RESIDENT Medical Necessity Reason Pt with a Central, PICC or Fol: No Subjective Review of Systems Patient was seen and examined on the bedside. He is alert oriented x3 and on 4 L oxygen saturating 97%. Complaint of generalized weakness and shortness of breath. No other active complaint. Constitutional: No: Fever, Chills, Sweats, Weakness, Malaise, Other Eyes: No: Pain, Vision change, Conjunctivae inflammation, Eyelid inflammation, Other, Redness ENT: No: Ear pain, Ear discharge, Nose pain, Nose discharge, Nose congestion, Mouth pain, Mouth swelling, Throat pain, Throat swelling, Other Respiratory: Shortness of breath, improving No: Cough, Dry,Wheezing, Hemoptysis, Pleuritic Pain, Sputum, Wheezing, Other Cardiovascular: No: Chest Pain, Palpitations, Orthopnea, Paroxysmal Noc. Dyspnea, Edema, Lt Headedness, Other Gastrointestinal: No: Nausea, Vomiting, Abdominal Pain, Diarrhea, Constipation, Melena, Hematochezia, Other Musculoskeletal: No: other, neck pain, shoulder pain, arm pain, back pain, hand pain, leg pain, foot pain Neurological:; No: Weakness, Numbness, Incoordination, Change in speech, Confusion, Seizures Objective vital signs Vital Sign Date Time Temp Pulse Resp B/P (MAP) Pulse Ox O2 Delivery O2 Flow Rate FiO2 11/14/24 12:00 98.5 96 19 142/80 (100) 100 98.5 11/14/24 07:30 Nasal Cannula* 4 36 Total Intake and Output 11/13/24 11/13/24 11/14/24 15:00 23:00 07:00 Intake Total 1050 ml 2800 ml Balance 1050 ml 2800 ml medications Current Medications Medications Dose Ordered Sig/Ella Route Start Time Stop Time Status Last Admin Dose Admin Nitroglycerin 0.4 mg Q5MINP PRN SL 11/13/24 23:00 Morphine Sulfate 2 mg Q30M PRN IV 11/13/24 23:00 Vancomycin HCl 0 ml @ 0 mls/hr UD IV 11/13/24 23:00 Acetaminophen 650 mg Q6HP PRN PO 11/13/24 23:15 Tamsulosin HCl 0.4 mg QPM PO 11/14/24 18:00 Azithromycin 250 ml @ 125 mls/hr DAILY@1200 IV 11/14/24 12:00 11/14/24 12:37 125 MLS/HR Cefepime HCl 50 ml @ 12.5 mls/hr Q12H IV 11/14/24 08:00 11/14/24 08:59 12.5 MLS/HR Apixaban 5 mg BID PO 11/14/24 22:00 Ergocalciferol 50,000 unit Q7D PO 11/14/24 15:00 Examination Physical examination: General Appearance: Alert, Oriented X3, Cooperative, mild distress and on 4L O2. HEENT: Atraumatic, PERRLA, EOMI, Mucous membrane moist/pink Respiratory: Rt sided crackles. Cardiovascular: Regular rate, Normal S1, Normal S2, No murmurs, no chest wall tenderness Abdominal: Normal bowel sounds, Soft, No tenderness, No hepatospenomegaly, No masses Extremities: No clubbing, No cyanosis, No edema, Normal pulses, No tenderness/swelling Skin: No rashes, No breakdown, No significant lesion Neuro: Normal gait, Normal speech, Strength at 5/5 X4 ext, Normal tone, Sensation intact, Cranial nerves 3-12 NL, Reflexes 2+ Psych/Mental Status: Mental status NL, Mood NL laboratory and microbiology Laboratory Tests 11/14/24 03:11 Test 11/14/24 03:11 Range/Units Serum Glucose 137 H 74-106 mg/dL Labs and/or images reviewed: Labs reviewed by me, Image(s) reviewed by me Problem List/Assessment/Plan Problem List/Assessment/Plan Assessment and plan: # Sepsis, likely due to pneumonia # Acute hypoxic respiratory failure, likely due to pneumonia # Possible community-acquired pneumonia likely Gram- negative/Gram- positive -Chest x-ray shows consolidation at right mid chest, med represent infection/neoplasm -Pending Blood/sputum/urine culture, - COVID and flu negative and pending MRSA nares - IV cefepime 1 g q.12 hours, IV azithromycin 500 mg daily and IV vancomycin as per pharmacy # NATHALIE on CKD likely due to hemodynamically mediated /VMN - Patient got 3 L bolus NS - Monitor BMP # Acute complicated cystitis - U/A consistent with UTI - Ordered urine bacterial culture - IV cefepime 1 g q.12 hours # Asymptomatic hypercalcemia likely due to dehydration # Mild hyponatremia # Transaminitis # Vitamin D deficiency - vitamin-D 58117 units Q 7D # Prediabetic, hemoglobin A1c 5.8 - Counseled patient regarding low carb diet, lifestyle modification and physical exercise. # History of DVT - Doppler scan of the lower limb demonstrated bilateral nonocclused deep venous thrombus (chronic) and previously communicated DVT in the femoral and popliteal veins. # Polysubstance abuse disorder - UDS is positive for amphetamine, phencyclidine and cannabinoids - Counseled patient regarding drug abuse and rehabilitation. # BPH - Renal ultrasound revealed diffuse bladder wall thickening - Tamsulosin 0.4 mg at HS DIET: Cardiac diet DVT PROPHYLAXIS: Lovenox GI PROPHYLAXIS:: Protonix CODE STATUS: Goal of care discussed for more than 18 minutes, full code DISPOSITION: Med/surge Plan discussed with Dr. Ventura Plan discussed with: Patient, Other My Orders My Orders Orders - DAYAAN ROLDAN Procedure Category Date Status Time Bilat Lower Dvt US 11/14/24 Resulted 07:17 Cefepime 1gm/ 50ml PHA 11/14/24 In Process (Maxipime 1gm/50ml) 08:00 Discontinue Tele JUNIOR 11/14/24 In Process 10:09 Transfer Orders XFER 11/14/24 Transmitted 10:09 Apixaban (Eliquis) PHA 11/14/24 In Process 22:00 Ergocalciferol PHA 11/14/24 In Process (Vitamin D 50,000 15:00 Date of Service: Nov 14, 2024 Billing Provider: CHAN GRANDA MD Common Visit Codes: [id number] INP/OBS CARE(HIGH) DAYANA ROLDAN RESIDENT Nov 14, 2024 15:45 CHAN GRANDA MD Nov 18, 2024 22:27
[2024-11-14] MEDS: ERGOCALCIFEROL 50,000 UNIT(1.25MG) CAP PO SCH (16:05)
[2024-11-14] MEDS: VANCOMYCIN 500mg/100mL 100 ML IV ONE (16:05)
[2024-11-14] MEDS: TAMSULOSIN HYDROCHLORIDE 0.4 MG CAP PO SCH (17:57)
[2024-11-14] MEDS: ACETAMINOPHEN 325 MG TAB PO PRN (21:06)
[2024-11-14] MEDS: APIXABAN 5 MG TAB PO SCH (21:06)
[2024-11-14] MEDS ORDERED: ENOXAPARIN SOD 40 MG/0.4 ML SYRINGE SC SCH (22:00)
--- NOTE | 2024-11-14 23:55 | DVHSR ---
APPROVED REPORT EXAM: Two-dimensional and M-mode echocardiogram with Doppler and color Doppler. Blood Pressure: 157/68 mmHg INDICATION Polysubstance abuse RISK FACTORS Height: 5'10", Weight: 230 DIMENSIONS LVDd5.1 (3.8-5.7cm)LA (2D)4.3 (1.9-4.0cm)Aortic Root3.3 (2.0-3.7cm) LVDs3.4 (2.5-4.0cm)LA (MM) (1.9-4.0cm)Aortic Cusp Exc (1.5-2.0cm) EF (%) 61.0 (55-70%)Rt. Atrium4.9 (1.9-4.0cm)Asc. Aorta cm IVSd0.6 (0.7-1.1cm)RV (D)4.5 (1.8-2.4cm) Mitral Valve MitralMitral Stenosis E wave0.53m/sMV Mean GR.mmHg A wave0.89m/sMV Peak GR.mmHg E/A ratio0.62D MVAcm2 DECEL [id number] 1/2 Timems Aortic Valve Aortic ValveAortic Stenosis V11.17m/Cindy Mean GR.6mmHg V21.46m/Cindy Peak GR.9mmHg LVOT Diameter2.1 (1.8-2.4cm)Doppler AVA2.77cm2 Tricuspid Valve TR Velocity2.69m/s [id number] Other Information Quality : Technically LimitedRhythm : Technically limited study due to body habitus. Conclusion Normal biventricular size and systolic function. LVEF 60-65%. Abnormal septal motion due to BBB. Norm al wall thickness. Grade 1 diastolic dysfunction. No significant valvular disease. Trace TR. Normal RVSP. Normal IVC. No pericardial effusion.
[2024-11-15] VITALS (9 sets, daily range): BP systolic 113–129; BP diastolic 52–81; PULSE 74–99; RESP 8–20; TEMP 98.9–99.9; O2SAT 90–97
[2024-11-15] MEDS ORDERED: PNEUMOCOCCAL VACC POLYS 25 MCG/0.5 ML VIAL IM ONE (06:15)
[2024-11-15 07:25] LABS: Chloride 101 mmol/L (98-107); Potassium 4.4 mmol/L (3.5-5.1)
[2024-11-15 07:26] LABS: Anion Gap 6 (5-15); Carbon Dioxide 25 mmol/L (20-31)
[2024-11-15 07:27] LABS: Calcium 9.8 mg/dL (8.7-10.4)
[2024-11-15 07:28] LABS: Basophils # (auto) 0 10 ^3/uL (0-0.2); Basophils % (auto) 0.3 % (0.0-2.0); Eosinophils # (auto) 0 10 ^3/uL (0-0.8); Eosinophils % (auto) 0.1 % (0.0-7.0); Hemoglobin 13.9 g/dL (13.5-17.5); Lymphocytes # (auto) 0.7 10 ^3/uL (0.4-5.4); Lymphocytes % (auto) 9.3 % (10.0-50.0); Mean Corpuscular Hemoglobin 31.6 pg (28.0-32.0); Mean Corpuscular Hgb Conc. 33.8 g/dL (32.0-36.0); Mean Corpuscular Volume 93.4 fL (80.0-100.0); Monocytes # (auto) 0.9 10 ^3/uL (0-1.3); Monocytes % (auto) 12.7 % (0.0-12.0); Neutrophils # (auto) 5.6 10 ^3/uL (1.6-8.6); Neutrophils % (auto) 77.6 % (37.0-80.0); Nucleated Red Blood Cells % 0.1 %; Platelet Count (auto) 143 10^3/uL (140-450); Red Blood Cells 4.39 10^6/uL (4.5-5.90); Red Cell Distribution Width 15.3 % (11.8-14.3); White Blood Cell 7.3 10^3/uL (4.4-10.8)
[2024-11-15 07:31] LABS: BUN/Creatinine Ratio 16.7 (10.0-20.0); Blood Urea Nitrogen 21 mg/dL (9-23)
[2024-11-15 07:32] LABS: Glucose 112 mg/dL (74-106); Sodium 132 mmol/L (136-145)
[2024-11-15] MEDS ORDERED: ALBUTEROL SULF 2.5 MG/0.5ML(0.5%) NEB SOLN NEB PRN (09:30)
[2024-11-15] MEDS ORDERED: IPRATROPIUM BROM 0.5 MG/2.5ML INH SOL NEB PRN (09:30)
[2024-11-15] MEDS: VANCOMYCIN 1GM/200ML PM 250 ML IV ONE (10:52)
[2024-11-15 11:17] LABS: Hepatitis A Ab IgM Negative
[2024-11-15 11:18] LABS: Hepatitis B Core IgM Negative (Negative); Hepatitis B Surface Antigen Negative (Negative); Hepatitis C Antibody Positive (Negative)
[2024-11-15] MEDS ORDERED: guaiFENesin 200 MG/10 ML UD PO PRN (13:00)
[2024-11-15] MEDS: ALBUTEROL SULF 2.5 MG/0.5ML(0.5%) NEB SOLN NEB SCH (14:00)
[2024-11-15] MEDS: IPRATROPIUM BROM 0.5 MG/2.5ML INH SOL NEB SCH (14:00)
--- NOTE | 2024-11-15 17:47 | DVHPNRES ---
Progress Note Date Seen: Nov 15, 2024 Resident Creating Document: DAYANA ROLDAN RESIDENT Medical Necessity Reason Pt with a Central, PICC or Fol: No Subjective Review of Systems Patient was seen examined on the bedside. He is alert oriented x3. Overnight patient's temperature was 103 but today morning temp is normal and the patient's complaint of chills and shortness of breath. No other active complaint. Objective vital signs Vital Sign Date Time Temp Pulse Resp B/P (MAP) Pulse Ox O2 Delivery O2 Flow Rate FiO2 11/15/24 17:00 99.3 89 19 125/72 (89) 91 99.3 11/15/24 11:17 4.0 11/15/24 07:54 Nasal Cannula* 36 Total Intake and Output 11/14/24 11/14/24 11/15/24 15:00 23:00 07:00 Intake Total 300 ml 400 ml 550 ml Output Total 200 ml Balance 300 ml 200 ml 550 ml medications Current Medications Medications Dose Ordered Sig/Ella Route Start Time Stop Time Status Last Admin Dose Admin Nitroglycerin 0.4 mg Q5MINP PRN SL 11/13/24 23:00 Morphine Sulfate 2 mg Q30M PRN IV 11/13/24 23:00 Vancomycin HCl 0 ml @ 0 mls/hr UD IV 11/13/24 23:00 Acetaminophen 650 mg Q6HP PRN PO 11/13/24 23:15 11/14/24 21:06 650 MG Tamsulosin HCl 0.4 mg QPM PO 11/14/24 18:00 11/15/24 16:59 0.4 MG Azithromycin 250 ml @ 125 mls/hr DAILY@1200 IV 11/14/24 12:00 11/15/24 12:02 125 MLS/HR Cefepime HCl 50 ml @ 12.5 mls/hr Q12H IV 11/14/24 08:00 11/15/24 08:18 12.5 MLS/HR Apixaban 5 mg BID PO 11/14/24 22:00 11/15/24 08:18 5 MG Ergocalciferol 50,000 unit Q7D PO 11/14/24 15:00 11/14/24 16:05 50,000 UNIT Albuterol 2.5 mg Q6HPRN PRN NEB 11/15/24 09:30 Ipratropium Rembrandt 0.5 mg Q6HPRN PRN NEB 11/15/24 09:30 Albuterol 2.5 mg Q8HR NEB 11/15/24 14:00 Ipratropium Rembrandt 0.5 mg Q8HR NEB 11/15/24 14:00 Guaifenesin 200 mg BID PO 11/15/24 22:00 11/17/24 21:59 Examination Physical examination: General Appearance: Alert, Oriented X3, Cooperative, mild distress and on 4L O2. HEENT: Atraumatic, PERRLA, EOMI, Mucous membrane moist/pink Respiratory: Rt sided crackles. Cardiovascular: Regular rate, Normal S1, Normal S2, No murmurs, no chest wall tenderness Abdominal: Normal bowel sounds, Soft, No tenderness, No hepatospenomegaly, No masses Extremities: No clubbing, No cyanosis, No edema, Normal pulses, No tenderness/swelling Skin: No rashes, No breakdown, No significant lesion Neuro: Normal speech, Strength at 5/5 X4 ext, Normal tone, Sensation intact, Cranial nerves 3-12 NL, Reflexes 2+ Psych/Mental Status: Mental status NL, Mood NL laboratory and microbiology Laboratory Tests 11/15/24 06:38 Test 11/15/24 06:38 Range/Units Serum Glucose 112 H 74-106 mg/dL Microbiology Date/Time Source Procedure Growth Status 11/15/24 08:15 Nose MRSA Screen - Final Complete 11/13/24 23:32 Voided Urine Urine Culture - Preliminary Resulted 11/13/24 21:00 Blood Blood Culture - Preliminary NO GROWTH AFTER 24 HOURS OF INCUBATION. Resulted Labs and/or images reviewed: Labs reviewed by me, Image(s) reviewed by me Problem List/Assessment/Plan Problem List/Assessment/Plan Assessment and plan: # Sepsis, likely due to pneumonia # Acute hypoxic respiratory failure, likely due to pneumonia # Possible community-acquired pneumonia likely Gram- negative/Gram- positive -Chest x-ray shows consolidation at right mid chest, med represent infection/neoplasm -Pending Blood/sputum/urine culture, - COVID and flu negative and pending MRSA nares - IV cefepime 1 g q.12 hours, IV azithromycin 500 mg daily and IV vancomycin as per pharmacy - Medneb with albuterol and ipratropium Q 8 hours - Incentive spirometry # NATHALIE on CKD likely due to hemodynamically mediated /VMN - Patient got 3 L bolus NS - Monitor BMP # Acute complicated cystitis - U/A consistent with UTI - Ordered urine bacterial culture - IV cefepime 1 g q.12 hours # Asymptomatic hypercalcemia likely due to dehydration # Mild hyponatremia # Transaminitis # Vitamin D deficiency - vitamin-D 69800 units Q 7D # Prediabetic, hemoglobin A1c 5.8 - Counseled patient regarding low carb diet, lifestyle modification and physical exercise. # History of DVT - Doppler scan of the lower limb demonstrated bilateral nonocclused deep venous thrombus (chronic) and previously communicated DVT in the femoral and popliteal veins. # Polysubstance abuse disorder - UDS is positive for amphetamine, phencyclidine and cannabinoids - Counseled patient regarding drug abuse and rehabilitation. # BPH - Renal ultrasound revealed diffuse bladder wall thickening - Tamsulosin 0.4 mg at HS DIET: Cardiac diet DVT PROPHYLAXIS: Lovenox GI PROPHYLAXIS:: Protonix CODE STATUS: Goal of care discussed for more than 18 minutes, full code DISPOSITION: Med/surge Plan Discussed with Dr. Ventura Plan discussed with: Patient, Other My Orders My Orders Orders - DAYANA ROLDAN Procedure Category Date Status Time Albuterol Medneb PHA 11/15/24 In Process (Ventolin Medneb) 09:30 Ipratropium Medneb PHA 11/15/24 In Process (Atrovent Medneb) 09:30 Date of Service: Nov 15, 2024 Billing Provider: CHAN GRANDA MD Common Visit Codes: [id number] INP/OBS CARE(HIGH) DAYANA ROLDAN Nov 15, 2024 17:47 CHAN GRANDA MD Nov 18, 2024 22:27
[2024-11-15] MEDS: guaiFENesin 200 MG/10 ML UD PO SCH (21:34)
[2024-11-16] VITALS (15 sets, daily range): BP systolic 109–141; BP diastolic 60–80; PULSE 73–97; RESP 16–22; TEMP 98.2–100.3; O2SAT 89–98
[2024-11-16 07:29] LABS: Anion Gap 6 (5-15); Carbon Dioxide 25 mmol/L (20-31); Chloride 100 mmol/L (98-107); Potassium 4.1 mmol/L (3.5-5.1)
[2024-11-16 07:30] LABS: Basophils # (auto) 0 10 ^3/uL (0-0.2); Basophils % (auto) 0.6 % (0.0-2.0); Calcium 9.7 mg/dL (8.7-10.4); Eosinophils # (auto) 0 10 ^3/uL (0-0.8); Eosinophils % (auto) 0.4 % (0.0-7.0); Hematocrit 38.5 % (41.0-53.0); Hemoglobin 13.3 g/dL (13.5-17.5); Lymphocytes # (auto) 0.8 10 ^3/uL (0.4-5.4); Lymphocytes % (auto) 17.3 % (10.0-50.0); Mean Corpuscular Hemoglobin 31.2 pg (28.0-32.0); Mean Corpuscular Hgb Conc. 34.5 g/dL (32.0-36.0); Mean Corpuscular Volume 90.5 fL (80.0-100.0); Monocytes # (auto) 0.7 10 ^3/uL (0-1.3); Monocytes % (auto) 14.2 % (0.0-12.0); Neutrophils # (auto) 3.3 10 ^3/uL (1.6-8.6); Neutrophils % (auto) 67.5 % (37.0-80.0); Nucleated Red Blood Cells % 0.1 %; Platelet Count (auto) 179 10^3/uL (140-450); Red Blood Cells 4.25 10^6/uL (4.5-5.90); Red Cell Distribution Width 15.3 % (11.8-14.3); White Blood Cell 4.9 10^3/uL (4.4-10.8)
[2024-11-16 07:31] LABS: Sodium 131 mmol/L (136-145)
[2024-11-16 07:35] LABS: BUN/Creatinine Ratio 16.8 (10.0-20.0); Blood Urea Nitrogen 19 mg/dL (9-23)
[2024-11-16 07:36] LABS: Glucose 131 mg/dL (74-106)
[2024-11-16] MEDS ORDERED: CEFEPIME 1GM/ 50ML 50 ML IV SCH (18:00)
[2024-11-16] MEDS: VANCOMYCIN 1.25GM/250ML 250 ML IV SCH (18:33)
--- NOTE | 2024-11-16 20:17 | DVHPN2 ---
Subjective no complaint, lung sounds improved but still diffuse rhonchi. PT today Changes from previous H/P or p: No Changes Objective Vitals Vital Signs Date Time Temp Pulse Resp B/P (MAP) Pulse Ox O2 Delivery O2 Flow Rate FiO2 11/16/24 17:00 99.0 88 20 141/72 (95) 98 99.0 11/16/24 13:41 Room Air 0.0 11/16/24 13:41 21 Intake/Output Intake and Output 11/16/24 07:00 Intake Total 1936 ml Balance 1936 ml Intake Oral 1336 ml IV Total 600 ml # Voids 4 Medications Current Medications Medications Dose Ordered Sig/Ella Route Start Time Stop Time Status Last Admin Dose Admin Nitroglycerin 0.4 mg Q5MINP PRN SL 11/13/24 23:00 Morphine Sulfate 2 mg Q30M PRN IV 11/13/24 23:00 Vancomycin HCl 0 ml @ 0 mls/hr UD IV 11/13/24 23:00 Acetaminophen 650 mg Q6HP PRN PO 11/13/24 23:15 11/14/24 21:06 650 MG Tamsulosin HCl 0.4 mg QPM PO 11/14/24 18:00 11/16/24 18:33 0.4 MG Azithromycin 250 ml @ 125 mls/hr DAILY@1200 IV 11/14/24 12:00 11/16/24 11:39 125 MLS/HR Apixaban 5 mg BID PO 11/14/24 22:00 11/16/24 08:09 5 MG Ergocalciferol 50,000 unit Q7D PO 11/14/24 15:00 11/14/24 16:05 50,000 UNIT Albuterol 2.5 mg Q6HPRN PRN NEB 11/15/24 09:30 Ipratropium [place] 0.5 mg Q6HPRN PRN NEB 11/15/24 09:30 Albuterol 2.5 mg Q8HR NEB 11/15/24 14:00 11/16/24 13:41 2.5 MG Ipratropium [place] 0.5 mg Q8HR NEB 11/15/24 14:00 11/16/24 13:41 0.5 MG Guaifenesin 200 mg BID PO 11/15/24 22:00 11/17/24 21:59 11/16/24 08:09 200 MG Vancomycin HCl 250 ml @ 200 mls/hr Q24H IV 11/16/24 18:00 11/16/24 18:33 200 MLS/HR Cefepime HCl 50 ml @ 12.5 mls/hr Q8H IV 11/16/24 20:00 Laboratory Results Laboratory Tests 11/16/24 06:30 Chemistry Test 11/16/24 06:30 Calcium Level 9.7 mg/dL (8.7-10.4) Urinalysis Test 11/13/24 23:32 Urine Color Light-orange (Yellow) Urine Clarity Turbid (Clear) H Urine pH 5.5 (5.0-9.0) Urine Specific [place] 1.020 (1.001-1.035) Urine Protein 1+ (Negative) H Urine Ketones Negative (Negative) Urine Blood 1+ /uL (Negative) H Urine Nitrite Negative (Negative) Urine Bilirubin Negative (Negative) Urine Urobilinogen 3 mg/dL (Negative) H Urine Leukocyte Esterase 3+ /uL (Negative) Urine RBC 4 /hpf (0 - 3) Urine WBC Clumps Present /hpf (None Seen) Urine Microscopic WBC 128 /HPF (0-3) H Urine Squamous Epithelial Cells Few /hpf (<5) Urine Bacteria Many /hpf (None Seen) H Urine Hyaline Casts Few /lpf (0 - 2) Urine Granular Casts Mod /lpf (0) Urine Osmolality 554 mOsm/kg Urine Creatinine 208.38 mg/dL (30.0-125.0) H Urine Sodium 21 mmol/L (40-220) L Urine Potassium 65 mmol/L (12-62) H Urine Glucose Normal mg/dL (Normal) Urine Total Protein 130.1 mg/dL (1-14) H Microbiology Microbiology Date/Time Source Procedure Growth Status 11/15/24 08:15 Nose MRSA Screen - Final Complete 11/13/24 23:32 Voided Urine Urine Culture - Final Complete 11/13/24 21:00 Blood Blood Culture - Preliminary NO GROWTH AFTER 48 HOURS OF INCUBATION. Resulted Assessment/Plan Assessment/Plan # Sepsis, likely due to pneumonia # Acute hypoxic respiratory failure, likely due to pneumonia # Possible community-acquired pneumonia likely Gram- negative/Gram- positive -Chest x-ray shows consolidation at right mid chest, med represent infection/neoplasm -Pending Blood/sputum/urine culture, - COVID and flu negative and pending MRSA nares - IV cefepime 1 g q.12 hours, IV azithromycin 500 mg daily and IV vancomycin as per pharmacy - Medneb with albuterol and ipratropium Q 8 hours - Incentive spirometry # NATHALIE on CKD likely due to hemodynamically mediated /VMN - Patient got 3 L bolus NS - Monitor BMP # Acute complicated cystitis - U/A consistent with UTI - Ordered urine bacterial culture - IV cefepime 1 g q.12 hours # Asymptomatic hypercalcemia likely due to dehydration # Mild hyponatremia # Transaminitis # Vitamin D deficiency - vitamin-D 24018 units Q 7D # Prediabetic, hemoglobin A1c 5.8 - Counseled patient regarding low carb diet, lifestyle modification and physical exercise. # History of DVT - Doppler scan of the lower limb demonstrated bilateral nonocclused deep venous thrombus (chronic) and previously communicated DVT in the femoral and popliteal veins. # Polysubstance abuse disorder - UDS is positive for amphetamine, phencyclidine and cannabinoids - Counseled patient regarding drug abuse and rehabilitation. # BPH - Renal ultrasound revealed diffuse bladder wall thickening - Tamsulosin 0.4 mg at HS deconditioning pt eval Plan discussed with: Patient My Orders Orders - DEBBIE CHAVEZ MD Procedure Category Date Status Time Pt Request For Service PT 11/16/24 Logged 11:49 Date of Service: Nov 16, 2024 Billing Provider: DEBBIE CHAVEZ MD Common Visit Codes: [id number] INP/OBS CARE(HIGH), 68419-RUG/OBS DISCH DAY >30min DEBBIE CHAVEZ MD Nov 16, 2024 20:17
[2024-11-16] MEDS: CEFEPIME 1GM/ 50ML 50 ML IV SCH (20:43)
[2024-11-17] VITALS (11 sets, daily range): BP systolic 98–126; BP diastolic 47–76; PULSE 77–103; RESP 18–20; TEMP 98–99; O2SAT 90–100
[2024-11-17 07:20] LABS: Hematocrit 38.2 % (41.0-53.0); Hemoglobin 13.2 g/dL (13.5-17.5); Mean Corpuscular Hemoglobin 31.5 pg (28.0-32.0); Mean Corpuscular Hgb Conc. 34.5 g/dL (32.0-36.0); Mean Corpuscular Volume 91.3 fL (80.0-100.0); Platelet Count (auto) 218 10^3/uL (140-450); Red Blood Cells 4.19 10^6/uL (4.5-5.90); Red Cell Distribution Width 15.7 % (11.8-14.3); White Blood Cell 4.6 10^3/uL (4.4-10.8)
[2024-11-17 07:33] LABS: Basophils % (manual) 0 (0.0-2.0); Blast Cells 0; Metamyelocytes % 0; Myelocytes % 0; Promyelocytes % 0; Reactive Lymphocytes 0
[2024-11-17 08:18] LABS: Band Neutrophils % (manual) 1; Eosinophils % (manual) 3 (0-7); Lymphocytes % (manual) 19 (10.0-50.0); Monocytes % (manual) 19 (0-12)
[2024-11-17 08:23] LABS: Anisocytosis Slight; Platelet Estimate Adequate
--- NOTE | 2024-11-17 14:32 | DVHPN2 ---
Subjective working with dennis SPRAGUE. dispo planning Changes from previous H/P or p: No Changes Objective Vitals Vital Signs Date Time Temp Pulse Resp B/P (MAP) Pulse Ox O2 Delivery O2 Flow Rate FiO2 11/17/24 14:27 89 20 100 11/17/24 14:21 Nasal Cannula 2.0 11/17/24 14:21 28 11/17/24 13:00 98.4 98/47 (64) 98.4 Intake/Output Intake and Output 11/17/24 07:00 Intake Total 1900 ml Balance 1900 ml Intake Oral 1300 ml IV Total 600 ml # Voids 6 # Bowel Movements 2 Medications Current Medications Medications Dose Ordered Sig/Ella Route Start Time Stop Time Status Last Admin Dose Admin Nitroglycerin 0.4 mg Q5MINP PRN SL 11/13/24 23:00 Morphine Sulfate 2 mg Q30M PRN IV 11/13/24 23:00 Vancomycin HCl 0 ml @ 0 mls/hr UD IV 11/13/24 23:00 Acetaminophen 650 mg Q6HP PRN PO 11/13/24 23:15 11/14/24 21:06 650 MG Tamsulosin HCl 0.4 mg QPM PO 11/14/24 18:00 11/16/24 18:33 0.4 MG Azithromycin 250 ml @ 125 mls/hr DAILY@1200 IV 11/14/24 12:00 11/17/24 12:46 125 MLS/HR Apixaban 5 mg BID PO 11/14/24 22:00 11/17/24 09:50 5 MG Ergocalciferol 50,000 unit Q7D PO 11/14/24 15:00 11/14/24 16:05 50,000 UNIT Albuterol 2.5 mg Q6HPRN PRN NEB 11/15/24 09:30 Ipratropium [place] 0.5 mg Q6HPRN PRN NEB 11/15/24 09:30 Albuterol 2.5 mg Q8HR NEB 11/15/24 14:00 11/17/24 14:21 2.5 MG Ipratropium [place] 0.5 mg Q8HR NEB 11/15/24 14:00 11/17/24 14:21 0.5 MG Guaifenesin 200 mg BID PO 11/15/24 22:00 11/17/24 21:59 11/17/24 09:50 200 MG Vancomycin HCl 250 ml @ 200 mls/hr Q24H IV 11/16/24 18:00 11/16/24 18:33 200 MLS/HR Cefepime HCl 50 ml @ 12.5 mls/hr Q8H IV 11/16/24 20:00 11/17/24 04:12 12.5 MLS/HR Laboratory Results Laboratory Tests 11/16/24 06:30 11/17/24 06:30 Urinalysis Test 11/13/24 23:32 Urine Color Light-orange (Yellow) Urine Clarity Turbid (Clear) H Urine pH 5.5 (5.0-9.0) Urine Specific [place] 1.020 (1.001-1.035) Urine Protein 1+ (Negative) H Urine Ketones Negative (Negative) Urine Blood 1+ /uL (Negative) H Urine Nitrite Negative (Negative) Urine Bilirubin Negative (Negative) Urine Urobilinogen 3 mg/dL (Negative) H Urine Leukocyte Esterase 3+ /uL (Negative) Urine RBC 4 /hpf (0 - 3) Urine WBC Clumps Present /hpf (None Seen) Urine Microscopic WBC 128 /HPF (0-3) H Urine Squamous Epithelial Cells Few /hpf (<5) Urine Bacteria Many /hpf (None Seen) H Urine Hyaline Casts Few /lpf (0 - 2) Urine Granular Casts Mod /lpf (0) Urine Osmolality 554 mOsm/kg Urine Creatinine 208.38 mg/dL (30.0-125.0) H Urine Sodium 21 mmol/L (40-220) L Urine Potassium 65 mmol/L (12-62) H Urine Glucose Normal mg/dL (Normal) Urine Total Protein 130.1 mg/dL (1-14) H Microbiology Microbiology Date/Time Source Procedure Growth Status 11/15/24 08:15 Nose MRSA Screen - Final Complete 11/13/24 23:32 Voided Urine Urine Culture - Final Complete 11/13/24 21:00 Blood Blood Culture - Preliminary NO GROWTH AFTER 72 HOURS OF INCUBATION. Resulted Assessment/Plan Assessment/Plan # Sepsis, likely due to pneumonia # Acute hypoxic respiratory failure, likely due to pneumonia # Possible community-acquired pneumonia likely Gram- negative/Gram- positive -Chest x-ray shows consolidation at right mid chest, med represent infection/neoplasm -Pending Blood/sputum/urine culture, - COVID and flu negative and pending MRSA nares - IV cefepime 1 g q.12 hours, IV azithromycin 500 mg daily and IV vancomycin as per pharmacy - Medneb with albuterol and ipratropium Q 8 hours - Incentive spirometry # NATHALIE on CKD likely due to hemodynamically mediated /VMN - Patient got 3 L bolus NS - Monitor BMP # Acute complicated cystitis - U/A consistent with UTI - Ordered urine bacterial culture - IV cefepime 1 g q.12 hours # Asymptomatic hypercalcemia likely due to dehydration # Mild hyponatremia # Transaminitis # Vitamin D deficiency - vitamin-D 91096 units Q 7D # Prediabetic, hemoglobin A1c 5.8 - Counseled patient regarding low carb diet, lifestyle modification and physical exercise. # History of DVT - Doppler scan of the lower limb demonstrated bilateral nonocclused deep venous thrombus (chronic) and previously communicated DVT in the femoral and popliteal veins. # Polysubstance abuse disorder - UDS is positive for amphetamine, phencyclidine and cannabinoids - Counseled patient regarding drug abuse and rehabilitation. # BPH - Renal ultrasound revealed diffuse bladder wall thickening - Tamsulosin 0.4 mg at HS deconditioning pt eval Plan discussed with: Patient Date of Service: Nov 17, 2024 Billing Provider: DEBBIE CHAVEZ MD Common Visit Codes: [id number] INP/OBS CARE(HIGH) DEBBIE CHAVEZ MD Nov 17, 2024 14:32
[2024-11-18] VITALS (14 sets, daily range): BP systolic 100–130; BP diastolic 47–71; PULSE 73–97; RESP 14–22; TEMP 97.7–99.1; O2SAT 90–100
[2024-11-18 08:49] LABS: Hematocrit 38.6 % (41.0-53.0); Hemoglobin 12.9 g/dL (13.5-17.5); Mean Corpuscular Hemoglobin 30.7 pg (28.0-32.0); Mean Corpuscular Hgb Conc. 33.4 g/dL (32.0-36.0); Mean Corpuscular Volume 91.9 fL (80.0-100.0); Platelet Count (auto) 302 10^3/uL (140-450); Red Cell Distribution Width 15.9 % (11.8-14.3); White Blood Cell 5.2 10^3/uL (4.4-10.8)
[2024-11-18 08:56] LABS: Band Neutrophils % (manual) 0; Basophils % (manual) 0 (0.0-2.0); Blast Cells 0; Metamyelocytes % 0; Myelocytes % 0; Promyelocytes % 0
[2024-11-18 09:41] LABS: Eosinophils % (manual) 5 (0-7); Lymphocytes % (manual) 21 (10.0-50.0); Monocytes % (manual) 17 (0-12); Reactive Lymphocytes 1
[2024-11-18 09:42] LABS: Anisocytosis Slight; Platelet Estimate Adequate
--- NOTE | 2024-11-18 18:36 | DVHPN2 ---
Subjective titrating down SPO2 as tolerated Changes from previous H/P or p: No Changes Objective Vitals Vital Signs Date Time Temp Pulse Resp B/P (MAP) Pulse Ox O2 Delivery O2 Flow Rate FiO2 11/18/24 16:30 99.1 95 14 100/47 (64) 94 99.1 11/18/24 14:06 Nasal Cannula* 3 32 Intake/Output Intake and Output 11/18/24 07:00 Intake Total 1750 ml Output Total 800 ml Balance 950 ml Intake Oral 1450 ml IV Total 300 ml Output Urine Total 800 ml # Voids 3 # Bowel Movements 2 Medications Current Medications Medications Dose Ordered Sig/Ella Route Start Time Stop Time Status Last Admin Dose Admin Nitroglycerin 0.4 mg Q5MINP PRN SL 11/13/24 23:00 Morphine Sulfate 2 mg Q30M PRN IV 11/13/24 23:00 Vancomycin HCl 0 ml @ 0 mls/hr UD IV 11/13/24 23:00 Acetaminophen 650 mg Q6HP PRN PO 11/13/24 23:15 11/14/24 21:06 650 MG Tamsulosin HCl 0.4 mg QPM PO 11/14/24 18:00 11/18/24 17:26 0.4 MG Azithromycin 250 ml @ 125 mls/hr DAILY@1200 IV 11/14/24 12:00 11/18/24 11:24 125 MLS/HR Apixaban 5 mg BID PO 11/14/24 22:00 11/18/24 09:59 5 MG Ergocalciferol 50,000 unit Q7D PO 11/14/24 15:00 11/14/24 16:05 50,000 UNIT Albuterol 2.5 mg Q6HPRN PRN NEB 11/15/24 09:30 Ipratropium [place] 0.5 mg Q6HPRN PRN NEB 11/15/24 09:30 Albuterol 2.5 mg Q8HR NEB 11/15/24 14:00 11/18/24 14:07 2.5 MG Ipratropium [place] 0.5 mg Q8HR NEB 11/15/24 14:00 11/18/24 14:06 0.5 MG Vancomycin HCl 250 ml @ 200 mls/hr Q24H IV 11/16/24 18:00 11/16/24 18:33 200 MLS/HR Cefepime HCl 50 ml @ 12.5 mls/hr Q8H IV 11/16/24 20:00 11/18/24 15:03 12.5 MLS/HR Laboratory Results Laboratory Tests 11/16/24 06:30 11/18/24 08:42 Urinalysis Test 11/13/24 23:32 Urine Color Light-orange (Yellow) Urine Clarity Turbid (Clear) H Urine pH 5.5 (5.0-9.0) Urine Specific [place] 1.020 (1.001-1.035) Urine Protein 1+ (Negative) H Urine Ketones Negative (Negative) Urine Blood 1+ /uL (Negative) H Urine Nitrite Negative (Negative) Urine Bilirubin Negative (Negative) Urine Urobilinogen 3 mg/dL (Negative) H Urine Leukocyte Esterase 3+ /uL (Negative) Urine RBC 4 /hpf (0 - 3) Urine WBC Clumps Present /hpf (None Seen) Urine Microscopic WBC 128 /HPF (0-3) H Urine Squamous Epithelial Cells Few /hpf (<5) Urine Bacteria Many /hpf (None Seen) H Urine Hyaline Casts Few /lpf (0 - 2) Urine Granular Casts Mod /lpf (0) Urine Osmolality 554 mOsm/kg Urine Creatinine 208.38 mg/dL (30.0-125.0) H Urine Sodium 21 mmol/L (40-220) L Urine Potassium 65 mmol/L (12-62) H Urine Glucose Normal mg/dL (Normal) Urine Total Protein 130.1 mg/dL (1-14) H Microbiology Microbiology Date/Time Source Procedure Growth Status 11/15/24 08:15 Nose MRSA Screen - Final Complete 11/13/24 23:32 Voided Urine Urine Culture - Final Complete 11/13/24 21:00 Blood Blood Culture - Preliminary NO GROWTH AFTER 72 HOURS OF INCUBATION. Resulted Assessment/Plan Assessment/Plan # Sepsis, likely due to pneumonia # Acute hypoxic respiratory failure, likely due to pneumonia # Possible community-acquired pneumonia likely Gram- negative/Gram- positive -Chest x-ray shows consolidation at right mid chest, med represent infection/neoplasm -Pending Blood/sputum/urine culture, - COVID and flu negative and pending MRSA nares - IV cefepime 1 g q.12 hours, IV azithromycin 500 mg daily and IV vancomycin as per pharmacy - Medneb with albuterol and ipratropium Q 8 hours - Incentive spirometry # NATHALIE on CKD likely due to hemodynamically mediated /VMN - Patient got 3 L bolus NS - Monitor BMP # Acute complicated cystitis - U/A consistent with UTI - Ordered urine bacterial culture - IV cefepime 1 g q.12 hours # Asymptomatic hypercalcemia likely due to dehydration # Mild hyponatremia # Transaminitis # Vitamin D deficiency - vitamin-D 45455 units Q 7D # Prediabetic, hemoglobin A1c 5.8 - Counseled patient regarding low carb diet, lifestyle modification and physical exercise. # History of DVT - Doppler scan of the lower limb demonstrated bilateral nonocclused deep venous thrombus (chronic) and previously communicated DVT in the femoral and popliteal veins. # Polysubstance abuse disorder - UDS is positive for amphetamine, phencyclidine and cannabinoids - Counseled patient regarding drug abuse and rehabilitation. # BPH - Renal ultrasound revealed diffuse bladder wall thickening - Tamsulosin 0.4 mg at HS deconditioning pt eval Plan discussed with: Patient Date of Service: Nov 18, 2024 Billing Provider: DEBBIE CHAVEZ MD Common Visit Codes: [id number] INP/OBS CARE(HIGH) DEBBIE CHAVEZ MD Nov 18, 2024 18:36
[2024-11-19] VITALS (9 sets, daily range): BP systolic 96–123; BP diastolic 48–63; PULSE 74–84; RESP 16–20; TEMP 97.8–99.3; O2SAT 90–98
[2024-11-19 07:06] LABS: Basophils # (auto) 0 10 ^3/uL (0-0.2); Basophils % (auto) 0.8 % (0.0-2.0); Eosinophils # (auto) 0.2 10 ^3/uL (0-0.8); Eosinophils % (auto) 3.8 % (0.0-7.0); Hematocrit 34.4 % (41.0-53.0); Lymphocytes # (auto) 1.1 10 ^3/uL (0.4-5.4); Lymphocytes % (auto) 20.9 % (10.0-50.0); Mean Corpuscular Hemoglobin 31.6 pg (28.0-32.0); Mean Corpuscular Hgb Conc. 34.9 g/dL (32.0-36.0); Mean Corpuscular Volume 90.7 fL (80.0-100.0); Monocytes # (auto) 0.9 10 ^3/uL (0-1.3); Monocytes % (auto) 16.9 % (0.0-12.0); Neutrophils % (auto) 57.6 % (37.0-80.0); Platelet Count (auto) 363 10^3/uL (140-450); Red Cell Distribution Width 15.5 % (11.8-14.3); White Blood Cell 5.3 10^3/uL (4.4-10.8)
[2024-11-19] MEDS ORDERED: LEVO500T91 PO (13:32)
--- NOTE | 2024-11-19 13:33 | DVHDS2 ---
Discharge Summary Date of Admission Nov 13, 2024 at 22:58 Labs/Diagnostic Data: Laboratory Results Test 11/19/24 05:04 11/18/24 08:42 11/16/24 06:30 11/14/24 08:32 White Blood Count 5.3 10^3/uL (4.4-10.8) Red Blood Count 3.80 10^6/uL (4.5-5.90) Hemoglobin 12.0 g/dL (13.5-17.5) Hematocrit 34.4 % (41.0-53.0) Mean Corpuscular Volume 90.7 fL (80.0-100.0) Mean Corpuscular Hemoglobin 31.6 pg (28.0-32.0) Mean Corpuscular Hemoglobin Concent 34.9 g/dL (32.0-36.0) Red Cell Distribution Width 15.5 % (11.8-14.3) Platelet Count 363 10^3/uL (140-450) Mean Platelet Volume 8.8 fL (6.9-10.8) Neutrophils (%) (Auto) 57.6 % (37.0-80.0) Lymphocytes (%) (Auto) 20.9 % (10.0-50.0) Monocytes (%) (Auto) 16.9 % (0.0-12.0) Eosinophils (%) (Auto) 3.8 % (0.0-7.0) Basophils (%) (Auto) 0.8 % (0.0-2.0) Neutrophils # (Auto) 3.0 10 ^3/uL (1.6-8.6) Lymphocytes # (Auto) 1.1 10 ^3/uL (0.4-5.4) Monocytes # (Auto) 0.9 10 ^3/uL (0-1.3) Eosinophils # (Auto) 0.2 10 ^3/uL (0-0.8) Basophils # (Auto) 0 10 ^3/uL (0-0.2) Nucleated Red Blood Cells 0.0 % Creatinine 1.12 mg/dL (0.700-1.30) Glomerular Filtration Rate Calc 70 mL/min (>90) Differential Total Cells Counted 100.0 (100) Neutrophils % (Manual) 56 (37.0-80.0) Band Neutrophils % (Manual) 0 Lymphocytes % (Manual) 21 (10.0-50.0) Monocytes % (Manual) 17 (0-12) Eosinophils % (Manual) 5 (0-7) Basophils % (Manual) 0 (0.0-2.0) Metamyelocytes % (manual) 0 Myelocytes % (Manual) 0 Promyelocytes % (Manual) 0 Blast Cells % (Manual) 0 Reactive Lymphocytes 1 Platelet Estimate Adequate Anisocytosis (manual) Slight Sodium Level 131 mmol/L (136-145) Potassium Level 4.1 mmol/L (3.5-5.1) Chloride Level 100 mmol/L (98-107) Carbon Dioxide Level 25 mmol/L (20-31) Anion Gap 6 (5-15) Blood Urea Nitrogen 19 mg/dL (9-23) BUN/Creatinine Ratio 16.8 (10.0-20.0) Serum Glucose 131 mg/dL (74-106) Calcium Level 9.7 mg/dL (8.7-10.4) Random Vancomycin Level 7.8 ug/mL (5-10) Troponin I High Sensitivity 27 ng/L (</=54) Test 11/14/24 03:31 11/14/24 03:11 11/13/24 23:32 11/13/24 20:47 Influenza Type A Antigen Negative (Negative) Influenza Type B Antigen Negative (Negative) SARS-CoV-2 Antigen (Rapid) Negative (NEGATIVE) Hemoglobin A1c 5.8 % A1C (<5.7) Total Bilirubin 0.5 mg/dL (0.2-1.0) Aspartate Amino Transferase (AST) 50 U/L (13-40) Alanine Aminotransferase (ALT) 27 U/L (7-40) Alkaline Phosphatase 66 U/L (46-116) Total Protein 7.3 g/dL (5.7-8.2) Albumin 4.0 g/dL (3.2-4.8) Vitamin D 25-Hydroxy 20.8 ng/mL (30.0-100) Thyroid Stimulating Hormone (TSH) 0.89 uIU/mL (0.55-4.78) Hepatitis A IgM Antibody Negative Hepatitis B Surface Antigen Negative (Negative) Hepatitis B Core IgM Antibody Negative (Negative) Hepatitis C Antibody Positive (Negative) HIV (1&2) Antibody Negative (Negative) Urine Color Light-orange (Yellow) Urine Clarity Turbid (Clear) Urine pH 5.5 (5.0-9.0) Urine Specific [place] 1.020 (1.001-1.035) Urine Protein 1+ (Negative) Urine Ketones Negative (Negative) Urine Blood 1+ /uL (Negative) Urine Nitrite Negative (Negative) Urine Bilirubin Negative (Negative) Urine Urobilinogen 3 mg/dL (Negative) Urine Leukocyte Esterase 3+ /uL (Negative) Urine RBC 4 /hpf (0 - 3) Urine WBC Clumps Present /hpf (None Seen) Urine Microscopic WBC 128 /HPF (0-3) Urine Squamous Epithelial Cells Few /hpf (<5) Urine Bacteria Many /hpf (None Seen) Urine Hyaline Casts Few /lpf (0 - 2) Urine Granular Casts Mod /lpf (0) Urine Osmolality 554 mOsm/kg Urine Creatinine 208.38 mg/dL (30.0-125.0) Urine Sodium 21 mmol/L (40-220) Urine Potassium 65 mmol/L (12-62) Urine Glucose Normal mg/dL (Normal) Urine Total Protein 130.1 mg/dL (1-14) Urine Opiates Screen Neg (NEGATIVE) Urine Fentanyl Screen Neg (NEGATIVE) Urine Barbiturates Screen Neg (NEGATIVE) Urine Phencyclidine Screen Pos (NEGATIVE) Urine Amphetamines Screen Pos (NEGATIVE) Urine Benzodiazepines Screen Neg (NEGATIVE) Urine Cocaine Screen Neg (NEGATIVE) Urine Cannabinoids Screen Pos (NEGATIVE) Prothrombin Time 11.0 sec (9.3-11.8) Prothrombin Time INR 1.04 (0.9-1.15) Activated Partial Thromboplast Time 32.9 SEC (24.5-34.5) D-Dimer, Quantitative 3.26 mg/L FEU (0.0-0.49) Lactic Acid Level 1.9 mmol/L (0.4-2.0) Magnesium Level 2.3 mg/dL (1.6-2.6) B-Type Natriuretic Peptide 107.86 pg/mL (0-100) Plasma/Serum Blood Alcohol < 3.0 mg/dL (<10) Other Laboratory Tests 11/19/24 05:04 11/16/24 06:30 Discharge Statement: "Patient was advised to return to the ER or call 911 if any headaches, dizziness, shortness of breath, chest pain, abdominal pain, bleeding, fevers, or worsening of medical condition. Patient was counseled about treatment plan, medications, possible side effects, patientverbalized understanding. All questions were answered to the best of my ability. This discharge took greater then 30 minutes in planning, reviewing documentation, counseling the patient, and discussing with other team members." ASSESSMENT ASSESSMENT Assessment DEBBIE CHAVEZ MD Nov 19, 2024 13:32
== END 2024-11-19 16:23 | disposition home or self-care (01) | DRG 720 ==
LOC: EDBD 19:53 → ER 19:53 → OVERFLOW 22:58 → TELE-EAST 11-14 04:02 → EAST 11-14 12:44
PROVIDERS: ADMIT Student in an Organized Health Care Education/Training Program; ATTEND Student in an Organized Health Care Education/Training Program
DX: A41.50 Gram-negative sepsis, unspecified (principal); J96.01 Acute respiratory failure with hypoxia; N17.0 Acute kidney failure with tubular necrosis; J15.69 Pneumonia due to other Gram-negative bacteria; J15.9 Unspecified bacterial pneumonia; E87.1 Hypo-osmolality and hyponatremia; K74.60 Unspecified cirrhosis of liver; E86.0 Dehydration; Z20.822 Contact with and (suspected) exposure to COVID-19; F19.10 Other psychoactive substance abuse, uncomplicated; E83.52 Hypercalcemia; N40.0 Benign prostatic hyperplasia without lower urinary tract symptoms; N30.00 Acute cystitis without hematuria; N18.2 Chronic kidney disease, stage 2 (mild); I12.9 Hypertensive chronic kidney disease with stage 1 through stage 4 chronic kidney disease, or unspecified chronic kidney disease; R73.03 Prediabetes; Z86.718 Personal history of other venous thrombosis and embolism; Z79.899 Other long term (current) drug therapy
CPT/HCPCS: 36415; 71045; 76775; 80048; 80053; 80074; 80202; 80307; 80320; 81001; 82306; 82565; 82570; 83036; 83605; 83735; 83880; 83935; 84133; 84156; 84300; 84443; 84484; 85007; 85025; 85027; 85379; 85610; 85730; 86703; 87040; 87081; 87086; 87426; 87804; 93005; 93306; 93970; 94640; 96365; 97110; 97116; 97163; 97530; 99291; G0378